=== PATIENT | male | born 1955 ===

== ENCOUNTER 2021-06-09 06:53 | Outpatient (REF) | payer OTHER, SELFPAY ==
--- NOTE | ~2021-06-09 | XR_ITS ---
EXAMINATION: X-RAY SACRUM, 3 VIEWS X-RAY LUMBAR SPINE, 5 VIEWS CLINICAL INFORMATION: Contusion of lower back and pelvis, initial encounter COMPARISON: CT abdomen and pelvis 12/07/2005, lumbar spine radiographs 05/30/2015 TECHNIQUE: AP and lateral radiographs of the sacrum AP, lateral, bilateral oblique, L5-S1 spot views of the lumbar spine FINDINGS: There is an anterior wedging compression deformity of the L1 vertebral body with at least 50% height loss anteriorly. Vertebral body heights are otherwise maintained and there are mild endplate degenerative changes throughout. Posterior elements are normal. Mild loss of disc space at L5-S1, otherwise intervertebral disc spaces are maintained. Mild facet arthropathy L4-L5 and L5-S1. Soft tissues are unremarkable. The bones of the sacrum are intact. 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 There is mild degenerative changes of the sacroiliac joints. XR/XR lumbar spine 4V min IMPRESSION: Anterior wedging/compression fracture of the L1 vertebral body with at least 50% anterior height loss. Findings communicated with Rozina Tsang LPN by Moise Aparicio M.D. at approximately 1053 hours by telephone. Per our discussion the patient had a fall approximately 2 months ago and has had pain since that time. In light of this clinical history, this is most likely a subacute fracture. No acute abnormality of the sacrum or coccyx. Mild degenerative changes of the sacroiliac joints.
--- NOTE | ~2021-06-09 | XR_ITS ---
EXAMINATION: X-RAY SACRUM, 3 VIEWS X-RAY LUMBAR SPINE, 5 VIEWS CLINICAL INFORMATION: Contusion of lower back and pelvis, initial encounter COMPARISON: CT abdomen and pelvis 12/07/2005, lumbar spine radiographs 05/30/2015 TECHNIQUE: AP and lateral radiographs of the sacrum AP, lateral, bilateral oblique, L5-S1 spot views of the lumbar spine FINDINGS: There is an anterior wedging compression deformity of the L1 vertebral body with at least 50% height loss anteriorly. Vertebral body heights are otherwise maintained and there are mild endplate degenerative changes throughout. Posterior elements are normal. Mild loss of disc space at L5-S1, otherwise intervertebral disc spaces are maintained. Mild facet arthropathy L4-L5 and L5-S1. Soft tissues are unremarkable. The bones of the sacrum are intact. 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 There is mild degenerative changes of the sacroiliac joints. XR/XR sacrum coccyx min 2V IMPRESSION: Anterior wedging/compression fracture of the L1 vertebral body with at least 50% anterior height loss. Findings communicated with Rozina Tsang LPN by Moise Aparicio M.D. at approximately 1053 hours by telephone. Per our discussion the patient had a fall approximately 2 months ago and has had pain since that time. In light of this clinical history, this is most likely a subacute fracture. No acute abnormality of the sacrum or coccyx. Mild degenerative changes of the sacroiliac joints.
--- NOTE | ~2021-06-09 | XR_ITS ---
EXAMINATION: XR HIP, RIGHT CLINICAL INFORMATION: Pain in right hip COMPARISON: None TECHNIQUE: Two views of the right hip. FINDINGS: Bones and soft tissues are normal. No fracture. Alignment is anatomic. There is minimal degenerative change along the superior lateral margin of the acetabulum, otherwise the hip joint space is maintained. XR/XR hip RT min 2V IMPRESSION: Equivocal minimal degenerative change along the superior lateral margin of the acetabulum, otherwise normal right hip.
== END 2021-06-09 06:54 | disposition home or self-care (01) ==
LOC: HO.XRAY 06:53
PROVIDERS: PCP Internal Medicine; Visit Provider Nurse Practitioner Family
DX: S30.0XXA Contusion of lower back and pelvis, initial encounter (principal); M25.551 Pain in right hip
CPT/HCPCS: 72110; 72220; 73502

== ENCOUNTER 2021-06-26 08:43 | Outpatient (REF) | payer OTHER, SELFPAY ==
--- NOTE | ~2021-06-26 | MM_ITS ---
EXAMINATION: BONE DENSITOMETRY CLINICAL INDICATION: Wedge compression fracture of 1st lumbar vertebra. COMPARISON: This is the patient's baseline examination. TECHNIQUE: Using a Lomography DXA System (software version: 13.1) manufactured by [employer], dual-energy x-ray absorptiometry was performed of the lumbar spine and left hip. The images are of good technical quality. Summary results are attached. FINDINGS: AP SPINE L1-L4: BMD 1.142 g/cm2, Z-score -0.3, T-score -0.7, normal. LEFT FEMUR, NECK: BMD 0.932 g/cm2, Z-score 0.0, T-score -1.1, osteopenia. LEFT FEMUR, TOTAL: BMD 1.090 g/cm2, Z-score 0.4, T-score -0.1, normal. IDENTIFIED RISK FACTORS: History of fracture (adult). HISTORY OF FRACTURE: Spine. MEDICATIONS: None listed. MM/XR DEXA axial skeleton IMPRESSION: 1. DIAGNOSIS: Osteopenia based on the lowest T-score value of -1.1 in the femoral neck applying World Health Organization criteria. 2. 10-YEAR FRACTURE RISK PREDICTION, FRAX: Major osteoporotic fracture (clinical spine, forearm, hip or shoulder) 9.2%. Hip fracture 1.1%. 3. Treatment Recommendations: NOF guidelines recommend consideration for treatment in postmenopausal women and men age 50 and older presenting with the following: -A hip or vertebral (clinical or morphometric) fracture. -T-score less than or equal to -2.5 at the femoral neck or spine after appropriate evaluation to exclude secondary causes. -Low bone mass at the hip or spine and a 10-year fracture probability by FRAX of greater than or equal to 3% for hip fracture or greater than or equal to 20% for major osteoporotic fracture based on the [place] adapted WHO algorithm. 4. Other Recommendations: All treatment decisions require clinical judgment and consideration of individual patient factors, including patient preferences, comorbidities, previous drug use, risk factors not captured in the FRAX model (e.g. frailty, falls, vitamin D deficiency, increased bone turnover, interval significant decline in bone density) and possible under or overestimation of fracture risk by FRAX. Additional medical evaluation for secondary cause of low bone mineral density may be appropriate. FUTURE SCAN RECOMMENDATION: People with diagnosed cases of osteoporosis or at high risk for fracture should have regular bone mineral density tests. For patients eligible for Medicare, routine testing is allowed once every 2 years. The testing frequency can be increased to one year for patients who have rapidly progressing disease, those who are receiving or discontinuing medical therapy to restore bone mass, or have additional risk factors.
== END 2021-06-26 08:44 | disposition home or self-care (01) ==
LOC: HO.MAMMO 08:43
PROVIDERS: PCP Internal Medicine; Visit Provider Nurse Practitioner Family
DX: Z13.820 Encounter for screening for osteoporosis (principal); S32.010A Wedge compression fracture of first lumbar vertebra, initial encounter for closed fracture; X58.XXXA Exposure to other specified factors, initial encounter; Y93.9 Activity, unspecified; Y92.9 Unspecified place or not applicable; Y99.9 Unspecified external cause status
CPT/HCPCS: 77080

== ENCOUNTER 2021-08-24 10:43 | Outpatient (RCR) | payer OTHER, SELFPAY ==
--- NOTE | 2021-08-25 16:05 | MHC.PT.EP ---
[facility] [place] [facility] [place] [facility] [place] [facility] [address] Elida Jensen [address] [phone] F: [phone] F: [phone] F: [phone] F: [phone] Physical Therapy Plan of Care Date of Evaluation: Date of Surgery: N/A Diagnosis: Low back pain, unspecified Assessment: Pt is a pleasant 65yo M who presents to PT with low back pain s/p falling off of a ladder. Xray revealed anterior wedging/compression fracture of the L1 vertebral body with at least 50% anterior height loss. Pt presents to PT with current impairments in pain, decreased lumbar ROM, decreased core stability, decreased hip/glute strength and muscular restrictions. He is limited functionally by bending, leaning toward R side, and overall functional mobility. He is a good candidate for skilled PT in order to address current impairments to facilitate return to PLOF. He will be seen 2x/week for 4 weeks and will be reassessed at that time. Frequency and Duration: The patient will be seen 2x/week for 4 weeks Short Term Goals: Pt will be I with HEP to promote self management of symptoms Pt will demonstrate improvements in posture and body mechanics throughout the day Detention Goals: Pt will tolerate standing and walking > 60 min with minimal to no pain Pt will demonstrate improvements in functional mobility as evidenced by statistically significant improvement in Modified Oswestry Low Back Pain Disability Index Questionnaire Treatment Plan: Modalities to reduce pain, spasms and effusion. Manual therapy to restore motion and function. Therapeutic exercise to improve strength and flexibility. Neuromuscular re-education for posture and balance. Therapeutic activities to return to functional activities of daily living. Electronically signed by: Karin Nieves, PT, DPT Please sign and return to therapist. Thank you for your referral.
--- NOTE | 2021-09-30 12:40 | MHC.PT.DC ---
[facility] [place] Office [place] [facility] [place] Office [address] Elida Jensen [address] [phone] F: [phone] F: [phone] F: [phone] F: [phone] Physical Therapy Discharge Report Diagnosis: Low back pain, unspecified Date of Surgery: N/A Date of Evaluation: 08/24/21 Date of Discharge: 09/30/21 Treatments to Date: 1 Cancellations to Date: 4 No Shows to Date: 0 Discharge Status: Patient Elected to Stop Discharge Summary: Pt attended initial PT evaluation on 08/24/21. Pt did not attend any treatment sessions and called to cancel all PT appointments as he wanted to wait to have an MRI prior to attending PT. Pt is being D/C from skilled PT as he has not attended in > 30 days. Pt current level of function unknown at this time. Electronically signed by: Karin Nieves, PT, DPT Please sign and return to therapist. Thank you for your referral.
== END 2021-09-30 12:40 | disposition home or self-care (01) ==
LOC: HO.PT 10:43
PROVIDERS: PCP Internal Medicine; Visit Provider Nurse Practitioner Family
DX: S32.010A Wedge compression fracture of first lumbar vertebra, initial encounter for closed fracture (principal); M25.551 Pain in right hip; M54.50 Low back pain, unspecified
CPT/HCPCS: 97110; 97162

== ENCOUNTER 2021-09-14 08:06 | Outpatient (REF) | payer OTHER, SELFPAY ==
--- NOTE | ~2021-09-14 | MR_ITS ---
EXAMINATION: MR LUMBAR SPINE WITHOUT AND WITH CONTRAST CLINICAL INFORMATION: Lumbar compression fracture. Back pain. COMPARISON: None TECHNIQUE: MRI of the lumbar spine was obtained using routine sequences without and with intravenous contrast. A total of 8.5 mL Gadavist was intravenously administered. FINDINGS: There is an acute edematous compression fracture at L1 and up to 50% height loss. There is mild retropulsion of the posterior cortex of L1 causing flattening of the ventral thecal sac but no compression of the distal cord/conus medullaris which terminates normally at the L1-L2 disc level. The remainder of the lumbar vertebral bodies demonstrate normal heights and alignment. There is mild focal kyphosis at the T12-L1 level partly related to the fracture. No abnormal cauda equina nerve root enhancement is seen. The extraspinal soft tissues are within normal limits. SPINAL LEVELS: L1-L2: No posterior disc abnormality. No spinal canal or neural foraminal stenosis. L2-L3: Minimal disc bulging. No spinal canal or neural foraminal stenosis. L3-L4: Mild disc bulging with mild facet arthropathy. No spinal canal or neural foraminal stenosis. L4-L5: Disc bulging with posterior annular fissuring and mild facet arthropathy. Mild bilateral neural foraminal stenosis. L5-S1: Mild disc bulging with facet arthropathy. No spinal canal or neural foraminal stenosis. MR/MR lumbar spine wo/w con IMPRESSION: Acute edematous osteoporotic type compression fracture at L1 with 50% height loss and mild retropulsion. No significant narrowing of the spinal canal or compression of the distal cord/conus medullaris. Minimal spondylosis without nerve root compression or narrowing of the spinal canal.
== END 2021-09-14 08:07 | disposition home or self-care (01) ==
LOC: HO.MRI 08:06
PROVIDERS: Visit Provider Physician Assistant
DX: S32.000A Wedge compression fracture of unspecified lumbar vertebra, initial encounter for closed fracture (principal)
CPT/HCPCS: 72158; A9585

== ENCOUNTER 2021-12-30 09:25 | Day surgery (SDC) | payer OTHER, SELFPAY ==
[2021-11-06 09:48] VITALS: BMI 25.1
--- NOTE | 2021-12-29 13:28 | P.CONAN_ITS ---
Documented by User: Ana Maria Herrera NP 12/29/21 13:42 HPI - Anesthesia Eval Consult details Narrative: 66yo M for Colonoscopy hx of asymmetric septal hypertrophy. Per 09/2021 PCP note: Echocardiogram done initially in 2015 to further evaluate some EKG changes at the time revealed (+) septal hypertrophy with grade I LV diastolic dysfunction Was referred to and evaluated by cardiology back then - as patient was completely asymptomatic and has no family Hx of sudden cardiac , no intervention is indicated at the time except for repeat echocardiogram in 2 years for follow up Repeat echo in 2019 revealed normal LV systolic function with mild LV hypertrophy with grade 1 LV diastolic dysfunction, mild left atrial enlargement, mild AR and normal LV systolic pressure with no pericardial effusion Patient remains asymptomatic and no intervention is again indicated at present Consider repeating echocardiogram again in 4 to 5 years for follow up unless patient starts becoming symptomatic PMF Active Problems Active Problems: All Active Problems (Updated 11/06/21 @ 09:18 by Darleen Rosales RN) Hyperlipidemia (Acute) Annual physical exam (Acute) Elevated blood pressure reading (Acute) Contusion of coccyx (Acute) Dyspnea (Acute) Right hip pain (Acute) Low back pain (Acute) Compression fracture of L1 vertebra (Acute) Wedge compression fracture of L1 vertebra (Acute) Asymmetric septal hypertrophy (Acute) Multiple environmental allergies (Acute) Overweight (BMI 25.0-29.9) (Acute) GERD without esophagitis (Acute) Asthma (Acute) Pure hypercholesterolemia (Acute) Past Medical History Medical History Asthma Asymmetric septal hypertrophy Back pain GERD without esophagitis Multiple environmental allergies Overweight (BMI 25.0-29.9) Pure hypercholesterolemia Seasonal allergies Wedge compression fracture of L1 vertebra Family History Family History Mother No problems noted. Father No problems noted. Surgical History Surgical History History of tracheostomy Hx of colonoscopy No pertinent past surgical history Social History Social History Housing: House Are you a primary child care sitter to a significant other at home: No Do you presently have visiting nurse or other home services: No Alcohol intake: current Alcohol intake frequency: a few times a week Patient Tobacco Use Status: Never used Tobacco e-Cigarette/Vaping Use: Never Used Second Hand Smoke Exposure: Yes Use of substances other than those prescribed or required for medical reasons: Yes Substance Use Type Other:: occas Substance Use Frequency: Occasionally Have you been hit, kicked, punched, or otherwise hurt by someone within the past year? 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 Cognitive needs: No Hearing needs: No Vision needs: Yes Meds Allergies Allergy/AdvReac Type Severity Reaction Status Date / Time cefdinir Allergy Unknown diarrhea- Verified 11/06/21 09:14 c-diff, diarrhea hydrocodone [Vicodin] Allergy Unknown stomach Verified 11/06/21 09:14 upset SEASONAL ALLERGIES Allergy Mild ITCHY Uncoded 11/06/21 09:14 EYES; SNEEZING Exam Exam Date and Time: December 29, 2021 1328 Height,Weight and Vital Signs: Height 5 ft 11 in Weight 81.647 kg Narrative Narrative: Per PCP 09/2021 Echocardiogram done initially in 2015 to further evaluate some EKG changes at the time revealed (+) septal hypertrophy with grade I LV diastolic dysfunction Was referred to and evaluated by cardiology back then - as patient was completely asymptomatic and has no family Hx of sudden cardiac , no intervention is indicated at the time except for repeat echocardiogram in 2 years for follow up Repeat echo in 2018 revealed normal LV systolic function with mild LV hype rtrophy with grade 1 LV diastolic dysfunction, mild left atrial enlargement, mild AR and normal LV systolic pressure with no pericardial effusion Patient remains asymptomatic and no intervention is again indicated at present Consider repeating echocardiogram again in 4 to 5 years for follow up unless patient starts becoming symptomatic Documented by User: Khadar Kaur MD 12/30/21 10:17 [facility] Past Medical History Medical History Asthma Asymmetric septal hypertrophy Back pain GERD without esophagitis Multiple environmental allergies Overweight (BMI 25.0-29.9) Pure hypercholesterolemia Seasonal allergies Wedge compression fracture of L1 vertebra Family History Family History Mother No problems noted. Father No problems noted. Family history of problems with anesthesia: No Surgical History Surgical History History of tracheostomy Hx of colonoscopy No pertinent past surgical history History of Problems with Anesthesia: No Social History Social History Housing: House Are you a primary child care sitter to a significant other at home: No Do you presently have visiting nurse or other home services: No Alcohol intake: current Alcohol intake frequency: a few times a week Patient Tobacco Use Status: Never used Tobacco e-Cigarette/Vaping Use: Never Used Second Hand Smoke Exposure: Yes Use of substances other than those prescribed or required for medical reasons: Yes Substance Use Type Other:: occas Substance Use Frequency: Occasionally Have you been hit, kicked, punched, or otherwise hurt by someone within the past year? 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 Cognitive needs: No Hearing needs: No Vision needs: Yes Meds Allergies Allergy/AdvReac Type Severity Reaction Status Date / Time cefdinir Allergy Unknown diarrhea- Verified 11/06/21 09:14 c-diff, diarrhea hydrocodone [Vicodin] Allergy Unknown stomach Verified 11/06/21 09:14 upset SEASONAL ALLERGIES Allergy Mild ITCHY Uncoded 11/06/21 09:14 EYES; SNEEZING Exam Airway Mallampati Class: II TM Dist: >3cm Neck ROM: Full Loose/Missing/Broken Teeth: No Heart: rrr+[id number] Lungs: cta b/l Assessment and Plan Assessment Anesthesia Assessment: Anesthesia Plan Discussed and Chart Reviewed Final Anesthetic Review Family History of Problems with Anesthesia: No History of Problems with Anesthesia: No NPO: Yes ASA Class: III Final Preanesthetic Review: No Changes in Pt Med Stat, Meds/Allgs Chart Reviewed, Consent Obtained/Reviewed and Anes Risks/Benef Reviewed Patient Risk: Intermediate Procedure Risk: Intermediate Assessment/Block/Sedation in SS: Assess/Block/Sedation-SS Anesthetic Plan Anesthetic Plan: MAC: and Agree w/ Assess. and Plan Disposition: Standard PACU
[2021-12-30 09:40] VITALS: BMI 23.7; BMI 24.3
[2021-12-30 09:45] VITALS: BP 136/101; PULSE 93; RESP 18; TEMP 36.1; O2SAT 96
[2021-12-30] MEDS: Lactated Ringers 1,000 ML 100 ML IVCONT (10:20)
[2021-12-30 11:32] VITALS: BP 143/86; PULSE 101; RESP 16; TEMP 36.5; O2SAT 97
--- NOTE | 2021-12-30 11:33 | PM.OP ---
Brief Operative Note Date of Service: 12/30/21 Pre-op diagnosis: Screening Post-op diagnosis: other (Polyp) Procedure: Colonoscopy to the cecum with hot snare polypectomy Surgeon: Juan Manuel Merino Anesthesia: MAC Was an Fuel Cell Battery Technician used for this Procedure?: No Estimated blood loss (mL): 0 Pathology: other (A. Cecal polyp) Condition: stable Disposition: PACU
[2021-12-30 11:47] VITALS: BP 133/78; PULSE 93; RESP 18; TEMP 36.1; O2SAT 98
--- NOTE | 2021-12-30 12:26 | OP_ITS ---
SURGEON: Juan Maunel Merino MD INDICATIONS: The patient presents for followup of colorectal cancer screening and personal history of tubular adenoma of the colon. Full consent has been obtained from him for this, including risks of bleeding and perforation. PREOPERATIVE DIAGNOSIS: Colorectal cancer screening and personal history of tubular adenoma of the colon. POSTOPERATIVE DIAGNOSIS: PROCEDURE PERFORMED: Colonoscopy to the cecum with hot snare polypectomy. ESTIMATED BLOOD LOSS: COMPLICATIONS: ANESTHESIA: Monitored anesthesia care. ASSISTANTS: SPECIMENS: POSTOPERATIVE DIAGNOSES: Colorectal cancer screening and personal history of tubular adenoma of the colon, colon polyp, diverticulosis, internal hemorrhoids. DESCRIPTION OF PROCEDURE: The patient was placed in the left lateral decubitus position the digital rectal exam revealed no abnormalities. The Olympus video pediatric colonoscope was entered into the rectum and advanced to the cecum. Once in the cecum, I did identify a normal-appearing cecal pouch other than an approximately 10 mm polyp, which was removed by hot snare polypectomy and recovered by suction. The remainder of the cecum, including the appendiceal orifice, appeared normal. The ileocecal valve appeared normal. There was transillumination of light deep in the right lower quadrant. The scope was then slowly withdrawn assessing all mucosal surfaces carefully. Preparation was excellent. I did not visualize any other polyps, colitis, nor angiodysplasia. There was a mild amount of sigmoid diverticulosis. In the rectum, scope was retroflexed visualizing internal hemorrhoids, but no other pathology. The rectal mucosa appeared normal. The scope was straightened and withdrawn from the patient. He tolerated the procedure well and was returned to the recovery area in stable condition. IMPRESSION: 1. Colon polyp. 2. Diverticulosis. 3. Internal hemorrhoids. PLAN: The results of the pathology will be checked. I would recommend a repeat colonoscopy in 5 years for further surveillance. He was advised not to use any aspirin or NSAIDs for 1 week. MD SARINA Valdovinos/MASHA / [id number]
== END 2021-12-30 12:15 | disposition home or self-care (01) ==
PROVIDERS: PCP Internal Medicine; Visit Provider Internal Medicine
PROC: 0DJD8ZZ Inspection of Lower Intestinal Tract, Via Natural or Artificial Opening Endoscopic (ICD-10-PCS; CPT 45378; principal; 2021-12-30 10:30)
DX: Z12.11 Encounter for screening for malignant neoplasm of colon (principal); Z86.010 Personal history of colon polyps; D12.0 Benign neoplasm of cecum; K57.30 Diverticulosis of large intestine without perforation or abscess without bleeding; K64.8 Other hemorrhoids; K21.9 Gastro-esophageal reflux disease without esophagitis; E78.5 Hyperlipidemia, unspecified; J45.909 Unspecified asthma, uncomplicated; Z79.1 Long term (current) use of non-steroidal anti-inflammatories (NSAID); Z79.899 Other long term (current) drug therapy; Z98.890 Other specified postprocedural states
CPT/HCPCS: 45385; 88305

== ENCOUNTER 2022-04-23 09:54 | Outpatient (REF) | payer OTHER, MEDICARE, SELFPAY ==
[2022-04-23 11:16] LABS: MANUAL DIFF FLAG NO
[2022-04-23 11:30] LABS: Appearance Urine Clear; Color Urine Yellow; Glucose Urine UA Negative (Negative); Leukocyte Esterase Urine Negative (Negative); Nitrite Urine Negative (Negative); PH 6.5 (5.0-9.0); Specific Gravity - Urine 1.015 (1.005-1.025); Urine Blood Negative (Negative); Urine Ketones Trace mg/dL (Negative); Urine Protein Negative (Neg-Trace)
[2022-04-23 11:56] LABS: Basophils Absolute Auto 0.1 X10*3/uL (0.0-0.2); Basophils Percent Auto 1.8 % (0-2); Eosinophils Absolute Auto 0.3 X10*3/uL (0.0-0.4); Eosinophils Percent Auto 4.6 % (0-4); Hematocrit 49.6 % (42.0-52.0); Hemoglobin 16.8 g/dl (14.0-18.0); Imm Gran Abs Auto 0.03 X10*3/uL (0.00-0.03); Imm Gran Pct Auto 0.5 % (0.0-0.4); Lymphocytes Absolute Auto 1.2 X10*3/uL (1.2-4.9); Lymphocytes Percent Auto 19.2 % (20-40); Mean Corpuscular HGB Conc 33.9 g/dl (31.0-36.0); Mean Corpuscular Volume 94.5 fL (80.0-98.0); Mean Platelet Volume 9.6 fL (9.4-12.4); Monocytes Absolute Auto 0.7 X10*3/uL (0.1-1.2); Monocytes Percent Auto 11.9 % (2-11); Neutrophils Absolute Auto 3.8 x10*3/uL (2.0-8.3); Platelet Count 306 X10*3/uL (160-400); Red Blood Count 5.25 X10*6/uL (4.60-5.80); Red Cell Distribution Width 11.8 % (11.0-16.0); White Blood Count 6.1 X10*3/uL (4.8-10.8)
[2022-04-23 12:32] LABS: Alanine Aminotransferase 20 U/L (0-40); Albumin Level 4.5 g/dL (3.5-5.0); Alkaline Phosphatase 84 U/L (39-117); Anion Gap 14 (12-20); Aspartate Amino Transferase 26 U/L (5-37); Bilirubin Total 1.1 mg/dL (0.0-1.0); Blood Urea Nitrogen 9 mg/dL (9-16); Calcium 9.7 mg/dL (8.4-10.2); Carbon Dioxide 27 mmol/L (22-29); Chloride 101 mmol/L (96-108); Cholesterol 198 mg/dL; Estimated Glomerular Filt Rate > 60; Glucose Fasting 97 mg/dL (60-99); HDL Cholesterol 69 mg/dL; LDL Cholesterol Calculated 113 mg/dl; Potassium 4.7 mmol/L (3.3-5.1); Sodium 137 mmol/L (135-145); Total Protein 7.4 g/dL (6.5-8.0); Triglycerides 84 mg/dL
[2022-04-23 12:49] LABS: Prostate Specific Antigen Scr 1.75 ng/mL (<0.05-4.0); Vitamin D 25-OH Total 20.5 ng/mL (>30)
== END 2022-04-23 09:55 | disposition home or self-care (01) ==
LOC: HO.10HDL 09:54
PROVIDERS: Visit Provider Internal Medicine
DX: Z00.00 Encounter for general adult medical examination without abnormal findings (principal); Z12.5 Encounter for screening for malignant neoplasm of prostate; E55.9 Vitamin D deficiency, unspecified; E78.00 Pure hypercholesterolemia, unspecified
CPT/HCPCS: 36415; 80053; 80061; 81003; 82306; 84153; 84443; 85025

== ENCOUNTER 2022-05-09 20:16 | Emergency (ER) | payer MEDICARE, OTHER, SELFPAY ==
[2022-05-09] MEDS: Famotidine/PF 20 MG/2 ML VIAL IVPUSH (20:36)
[2022-05-09] MEDS: dexAMETHasone sod phosphate 10 MG/ML VIAL IVPUSH (20:36)
[2022-05-09] MEDS: diphenhydrAMINE HCL 50 MG/ML VIAL 25 MG IVPUSH (20:36)
[2022-05-09 20:37] VITALS: BP 163/81; PULSE 104; RESP 16; TEMP 36.7; O2SAT 98; BMI 25.9
--- NOTE | 2022-05-09 21:18 | ED.ALLEREA ---
HPI - Allergic Reaction General Chief complaint: Allergic Reaction Stated complaint: allergic reaction/ used epi pen Time Seen by Provider: 05/09/22 20:18 Source: patient Mode of arrival: ambulatory Limitations: no limitations History of Present Illness HPI narrative: Patient with no known history of any allergic reaction to seafood severe anaphylaxis status post intubation years ago from environmental allergy today patient had seafood salad which she been having almost every day for last few days after eating salad around 17:00 noticed itching of face swollen face and difficulty in breathing. Patient took old EpiPen IM and Benadryl 50 prior to arrival but arrived still feels short of breath with swollen face no nausea no vomiting Related Data Previous Rx's Medication Instructions Recorded albuterol sulfate 90 mcg/actuation 2 puff inhalation Q6H PRN 04/22/22 aerosol inhaler (Ventolin HFA) shortness of breath or wheezing 30 days #8.5 grams fluticasone propionate 110 1 puff PO BID 30 days #12 grams 04/22/22 mcg/actuation HFA aerosol inhaler (Flovent HFA) ibuprofen 800 mg tablet 800 mg PO Q8H PRN pain 30 days #90 04/22/22 tabs simvastatin 20 mg tablet 20 mg PO BEDTIME #90 tabs 04/22/22 amoxicillin 875 mg-potassium 1 tab PO BID 10 days #20 tabs 04/23/22 clavulanate 125 mg tablet famotidine 40 mg tablet 40 mg PO BEDTIME PRN GERD 90 days 04/23/22 #90 tabs kctvarvb-dlxdicsgv-usotyuzui 3.5 4 drp otic (ears) Q8H 7 days #10 mL 04/23/22 mg-10,000 unit/mL-1 % ear drops,susp epinephrine 0.3 mg/0.3 mL 0.3 mg (0.3 mL) IM Q4H PRN 05/09/22 injection, auto-injector (EpiPen anaphylaxis #2 ea 2-[place]) prednisone 20 mg tablet 40 mg PO DAILY #10 tabs 05/09/22 Allergies Allergy/AdvReac Type Severity Reaction Status Date / Time cefdinir Allergy Unknown diarrhea- Verified 04/23/22 08:53 c-diff, diarrhea hydrocodone [Vicodin] Allergy Unknown stomach Verified 04/23/22 08:53 upset SEASONAL ALLERGIES Allergy Mild ITCHY Uncoded 11/06/21 09:14 EYES; SNEEZING Review of Systems Review of Systems: Yes all other systems are reviewed and are negative [facility] Past Medical History Medical History Asthma Asymmetric septal hypertrophy Back pain GERD without esophagitis Multiple environmental allergies Overweight (BMI 25.0-29.9) Pure hypercholesterolemia Seasonal allergies Wedge compression fracture of L1 vertebra Surgical History History of tracheostomy Hx of colonoscopy No pertinent past surgical history Family History Family History Mother No problems noted. Father No problems noted. 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 Cognitive needs: No Hearing needs: No Vision needs: Yes Physical Exam ED Vital Signs: Vital Signs - 24 hr 05/09/22 20:37 Temperature 98.0 F Pulse Rate 104 H Respiratory Rate 16 Blood Pressure 163/81 H Pulse Oximetry 98 Oxygen Delivery Method Room Air BMI result Body Mass Index 25.9 Appearance: Alert. Oriented X3. No acute distress. ENT: Pharynx erythematous uvula normal no tongue swelling slight upper lip swelling, Oral Mucosa moist , erythema with facial swelling including the ear pinna Neck: Normal inspection. Neck supple. CVS: Normal heart rate and rhythm. Pulses normal. Respiratory: No respiratory distress. Equal air entry bilateral, no wheezing/rales/rhonchi bilateral prolonged expiration Abdomen: Soft and nontender. Bowel sounds are present, Skin: Skin warm and dry. Normal skin color. Normal skin turgor. Neuro: Oriented X 3. Medications Administered Discontinued Medications Generic Name Dose Route Start Last Admin Trade Name Freq PRN Reason Stop Dose Admin Dexamethasone Sodium Phosphate 10 mg 05/09/22 20:21 05/09/22 20:36 Dexamethasone Sod Phosphate 10 Mg/Ml Vial IVPUSH 05/09/22 20:22 10 mg ONCE ONE Administration Diphenhydramine HCl 25 mg 05/09/22 20:21 05/09/22 20:36 Diphenhydramine Hcl 50 Mg/Ml Vial IVPUSH 05/09/22 20:22 25 mg ONCE ONE Administration Famotidine 20 mg 05/09/22 20:21 05/09/22 20:36 Famotidine/Pf 20 Mg/2 Ml Vial IVPUSH 05/09/22 20:22 20 mg ONCE ONE Administration Medical Decision Making Medical Decision Making MDM Narrative: Patient responded to IV Benadryl Decadron and Pepcid feeling much better now lungs are clear rash has improved itching is decreased. Patient likely has allergic reaction to some of the seafood ingredients. Patient advised not to eat seafood take prednisone Benadryl and follow with PCP for further testing once get better Discharge Plan Discharge Clinical Impression: Anaphylaxis Patient Disposition: Home, Self-Care Instructions: Food Allergy (ED) Additional Instructions: Avoid seafood Take Benadryl 50 mg every 6 hours as needed Take prednisone daily if rash recurs Follow-up with PCP for further testing Take EpiPen for recurrence of severe rash/ anaphylaxis and come to the ER Prescriptions: New epinephrine [EpiPen 2-[place]] 0.3 mg/0.3 mL auto-injector 0.3 mg IM Q4H PRN (Reason: anaphylaxis) Qty: 2 0RF prednisone 20 mg tablet 40 mg PO DAILY Qty: 10 0RF No Action simvastatin 20 mg tablet 20 mg PO BEDTIME Qty: 90 0RF albuterol sulfate [Ventolin HFA] 90 mcg/actuation HFA aerosol inhaler 2 puff inhalation Q6H PRN (Reason: shortness of breath or wheezing) 30 Days Qty: 8.5 5RF Flovent HFA 110 mcg/actuation HFA aerosol inhaler 1 puff PO BID 30 Days Qty: 12 5RF ibuprofen 800 mg tablet 800 mg PO Q8H PRN (Reason: pain) 30 Days Qty: 90 3RF Rx Instructions: Take with food phxmpkaw-hqihvuhdy-RK 3.5-10,000-1 mg/mL-unit/mL-% drops,suspension 4 drp otic (ears) Q8H 7 Days Qty: 10 0RF amoxicillin-pot clavulanate 875-125 mg tablet 1 tab PO BID 10 Days Qty: 20 0RF famotidine 40 mg tablet 40 mg PO BEDTIME PRN (Reason: GERD) 90 Days Qty: 90 0RF Rx Instructions: gets OTC Interventions: ED Discharge Assessment Last Done: 05/09/22 21:47 Discharge Date/Time: 05/09/22 21:48
== END 2022-05-09 21:48 | disposition home or self-care (01) ==
PROVIDERS: Emergency Provider Internal Medicine; PCP Internal Medicine
DX: T78.03XA Anaphylactic reaction due to other fish, initial encounter (principal); Z79.899 Other long term (current) drug therapy; L29.9 Pruritus, unspecified
CPT/HCPCS: 96372; 96374; 96375; 96376; 99283; 99284; J1100; J1200

== ENCOUNTER 2022-05-26 07:32 | Outpatient (REF) | payer MEDICARE, OTHER, SELFPAY ==
[2022-06-04 11:18] LABS: Rast Allergen SEE COMMENTS
== END 2022-05-26 07:33 | disposition home or self-care (01) ==
LOC: HO.10HDL 07:32
PROVIDERS: Visit Provider Otolaryngology
DX: T78.2XXA Anaphylactic shock, unspecified, initial encounter (principal)
CPT/HCPCS: 36415; 82785; 86003

== ENCOUNTER 2022-06-22 07:00 | Outpatient (RCR) | payer MEDICARE, OTHER, SELFPAY ==
--- NOTE | 2022-05-07 13:57 | MHC.PT.EP ---
[facility] [place] Office [place] [facility] [place] Office [address] Elida Jensen [address] [phone] F: [phone] F: [phone] F: [phone] F: [phone] Physical Therapy Plan of Care Date of Evaluation: Date of Surgery: NA Diagnosis: Low back pain Assessment: Colin is a 66 year old male who is referred to PT for low back pain . He reports of having pain in his low back following a fall and compression fracture at L1 in Mar 2021. He trialed PT last year but was in too much pain and was unable to tolerate it. On PT examination he presented with mild TTP T12, L1, 4/10 pain after prolonged periods of rest, with bending, and lifting, decreased trunk ROM, decreased core and B LE strength, altered posture and gait. He is independent with all ADLS but modifies them and takes frequent rest breaks due to pain. 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 He would benefit from skilled PT to address the aforementioned impairments and improve tolerance to functional activities. Frequency and Duration: The patient will be seen 2/week for 4 weeks. Short Term Goals: 1. Pt will have 50% decrease in pain which will enable him to wake up in the morning without pain in 2 weeks. 2. Pt will be able to move trunk through all planes of motion without pain which will enable him to bend over without pain in 3 weeks [facility] Goals: 1. Pt will demonstrate an increase in muscle strength by 1 grade which will enable him to carry weights without pain in 4 weeks. 2. Pt will be independent with HEP for symptom management and maintenance following d/c in 4 weeks. Treatment Plan: Modalities to reduce pain, spasms and effusion. Manual therapy to restore motion and function. Therapeutic exercise to improve strength and flexibility. Neuromuscular re-education for posture and balance. Therapeutic activities to return to functional activities of daily living. Electronically signed by: Beatriz Denton PT DPT Please sign and return to therapist. Thank you for your referral.
--- NOTE | 2022-07-14 10:04 | MHC.PT.DC ---
[facility] [place] [facility] [address] Elida Jensen [address] [phone] F: [phone] F: [phone] F: [phone] F: [phone] Physical Therapy Discharge Report Diagnosis: Low back pain Date of Surgery: NA Date of Evaluation: 05/07/22 Date of Discharge: 07/14/22 Treatments to Date: 4 Cancellations to Date: 4 No Shows to Date: Discharge Status: Visit Non-compliance Discharge Summary: Colin has not attended PT in last 3 weeks. He has had 4 cancels and has only attended 4 visits in the last 2 months. He is therefore being d/c from PT for non compliance Electronically signed by: Beatriz Denton, PT DPT Please sign and return to therapist. Thank you for your referral.
== END 2022-07-14 10:04 | disposition home or self-care (01) ==
LOC: HO.PT 07:00
PROVIDERS: PCP Internal Medicine; Visit Provider Internal Medicine
DX: M54.50 Low back pain, unspecified (principal)
CPT/HCPCS: 97110; 97140; 97161

== ENCOUNTER 2022-10-25 09:01 | Outpatient (AMB) | payer OTHER, SELFPAY ==
[2022-10-25 09:03] VITALS: BP 136/80; PULSE 58; O2SAT 97; BMI 27.6
--- NOTE | 2022-10-25 09:03 | A.OFFPC_ITS ---
Vital Signs 10/25/22 09:03 Height 5 ft 9 in Weight 187 lb BMI 27.6 BP 136/80 Blood Pressure Location Lt brachial Position Sitting Pulse 58 Pulse Source Pulse Oximeter Temp Source Skin Pulse Oximetry (%) 97 Oxygen Delivery Method Room Air Intake Visit Reasons: 6mth f/u Intake Note: Patient is here to follow up on 6 months Roof Slater Required: No Allergies cefdinir Allergy (Unknown, Verified 10/25/22 09:15) diarrhea- c-diff, diarrhea hydrocodone [Vicodin] Allergy (Unknown, Verified 10/25/22 09:15) stomach upset SEASONAL ALLERGIES Allergy (Mild, Uncoded 10/25/22 09:15) ITCHY EYES; SNEEZING Medication List - Last Reconciled 10/25/22 by Semaj Moeller MD albuterol sulfate 90 mcg/actuation (Ventolin HFA) 2 puffs inhalation Q6H PRN 30 days epinephrine (EpiPen 2-[place]) 0.3 mg (0.3 mL) IM Q4H PRN famotidine 40 mg PO BEDTIME PRN 90 days fluticasone propionate 110 mcg/actuation (Flovent HFA) 1 puff PO BID 30 days ibuprofen 800 mg PO Q8H PRN 30 days simvastatin 20 mg PO BEDTIME Tobacco use date assessed: 10/25/22 Fall risk assessment: No Falls in past year Last assessed Fall Risk: 10/25/22 Dental Screening Dental Screen Date: 10/25/22 Did you have a dental visit in the last 12 months?: Yes Did you have a dental problem in the last 6 months where you did not have access to dental care?: No Was dental information given to patient?: Patient has dentist HPI 6mth f/u HPI Details Patient comes in today for his follow up visit States that he feels okay except for his right knee, which he states has been bothering him a lot (pain) lately Recalls that he had an old football injury to his right knee when he was playing football back in college and thinks that his old injury is starting to flare up lately States that his lower back still bothers him a lot Has not seen Dr. Gold in over a year; recalls that they were discussing the option of a kyphoplasty for his wedge compression fracture Adds that he still has a recurrent nonproductive cough; recalls having a tracheostomy a few years ago and thinks that there may be something in his throat where he had the tracheostomy that is triggering his cough as he would have uncontrolled coughing fits when they occur He denies any sore throat or trouble swallowing He denies any headaches or dizziness Denies any chest pains, no SOB No nausea/vomiting, no abdominal pain No change in bowel habits noted Needs his Albuterol inhaler Rx refilled Would like to go over in detail the results of his labs done a few months ago [facility], [facility] Medical History (Updated 10/25/22 @ 09:58 by Semaj Moeller MD) Vitamin D deficiency Back pain Seasonal allergies Wedge compression fracture of L1 vertebra Asymmetric septal hypertrophy Multiple environmental allergies Overweight (BMI 25.0-29.9) GERD without esophagitis Asthma Pure hypercholesterolemia Surgical History History of tracheostomy Hx of colonoscopy No pertinent past surgical history Family History Mother No problems noted. Father No problems noted. 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 Cognitive needs: No Hearing needs: No Vision needs: Yes Questionnaire PHQ-9 Over the last 2 weeks, how often have you been bothered by any of the following problems? 1. Little interest or pleasure in doing things: not at all 2. Feeling down, depressed, or hopeless: not at all 3. Trouble falling or staying asleep, or sleeping too much: not at all 4. Feeling tired or having little energy: not at all 5. Poor appetite or overeating: several days 6. Feeling bad about yourself - or that you are a failure or have let yourself or your family down: not at all 7. Trouble concentrating on things, such as reading the newspaper or watching television: not at all 8. Moving or speaking so slowly that other people could have noticed. Or the opposite - being so fidgety or restless that you have been moving around a lot more than usual: not at all 9. Thoughts that you would be better off or of hurting yourself in some way: not at all Total score: 1 Depression Screening Interpretation: Negative 73219 - PHQ-9 Billing: Yes Source: Developed by Drs. Juan Manuel Piña, Vikash Campos and colleagues, with an educational johnny from [email or web address]. Thrive Questionnaire Date Thrive assessed: 10/25/22 I am a: Patient What is your living situation today?: I have a steady place to live Within the past 12 months, did the food you bought not last and you didn't have the money to get more?: Never true Within the past 12 months, did you worry whether your food would run out before you got money to buy more?: Never true Currently or been in a relationship where the following occur: no concerns reported AUDIT C Alcohol Use Questionnaire (AUDIT-C) 1. How often do you have a drink containing alcohol?: Never 3. How often do you have six or more drinks on one occasion?: Never Total Score: 0 Score Reviewed/Action Taken: Yes ZONIA-7 AMB Questionnaire ZONIA-7 Date ZONIA - 7 assessed: 04/23/22 Feeling nervous, anxious, or on edge: 1 = Several days Not being able to stop or control worryin = Several days Worrying too much about different things: 0 = Not at all Trouble relaxin = Several days Being so restless that it is hard to sit still: 0 = Not at all Becoming easily annoyed or irritable: 0 = Not at all Feeling afraid as if something awful might happen: 0 = Not at all Total ZONIA-7 score (0-4 normal; 5-9 mild; 10-14 moderate; 15-21 severe): 3 Source: Developed by Drs. Juan Manuel Piña, Vikash Campos and colleagues, with an educational johnny from [email or web address]. Review of Systems Const Denies chills, Denies fatigue, Denies fever(s) and Denies headache(s) ENT Denies dysphagia, Denies dizziness, Denies otalgia, Denies headache(s), Denies neck pain, Denies odynophagia and Denies sore throat Card Denies chest pain, Denies palpitations and Denies dyspnea Resp Reports cough (recurrent, non-productive), Denies dyspnea and Denies wheezing GI Denies abdominal pain, Denies constipation, Denies dysphagia, Denies heartburn, Denies diarrhea, Denies nausea, Denies odynophagia and Denies vomiting Denies dysuria, Denies nocturia and Denies urinary frequency Musc Reports back pain (over the lower back - chronic), Reports arthralgias (right knee - increasing lately) and Denies neck pain Neuro Denies dizziness and Denies headache(s) Endo Denies fatigue and Denies palpitations Aller/Immun Denies wheezing Physical exam (Primary Care) Vital Signs: Last Vital Signs Pulse 58 10/25/22 09:03 BP 136/80 10/25/22 09:03 Pulse Ox 97 10/25/22 09:03 Oxygen Delivery Method Room Air 10/25/22 09:03 BMI result Body Mass Index 27.6 Tobacco/Smoking Status: Tobacco use Status Tobacco use date assessed 10/25/22 10/25/22 09:05 Patient Tobacco Use Status Never used Tobacco 10/25/22 09:05 e-Cigarette/Vaping Use Never Used 10/25/22 09:05 Depression Screening Interpretation: Negative Thrive Assessment: Date of Thrive Assessment Date Thrive assessed 04/23/22 10/25/22 09:05 Currently or been in a relationship where the following occur: no concerns reported Const General: no acute distress and alert HENMT Ears: TM's normal bilaterally and EAC's normal Throat: Yes posterior oropharynx normal and Yes tonsils normal (no TP congestion) Neck Neck: Yes no lymphadenopathy and Yes supple Resp Auscultation: clear to auscultation bilaterally, no rales and no wheezes Cardio Rate: regular rate Rhythm: regular rhythm Heart sounds: no murmurs GI Palpation (GI): Soft to palpation and nontender Auscultation: normal bowel sounds Back/Spine/Pelvis Thoracic/Lumbar Spine: lumbar spinal tenderness Skin Rashes: no rashes Extrem General: Yes no clubbing, cyanosis or edema Right lower extremity: knee Details: tenderness Location: of the medial joint line; no swelling Assessment and Plan Assessment & Plan (1) Pure hypercholesterolemia: Code(s): E78.00 - Pure hypercholesterolemia, unspecified Plan: He was not able to get his follow up labs done prior to his visit today Reinforced low cholesterol diet Continue Simvastatin 20 mg QD Will recheck his fasting lipids and labs in 6 months for follow up (2) Elevated blood pressure reading: Code(s): R03.0 - Elevated blood-pressure reading, without diagnosis of hypertension Plan: Reinforced low sodium diet - recommend systolic BP of 120 mm or less Patient advised to continue monitoring his blood pressure regularly (3) Wedge compression fracture of L1 vertebra: Code(s): S32.010A - Wedge compression fracture of first lumbar vertebra, initial encounter for closed fracture Qualifiers: Encounter type: sequela Fracture type: closed Qualified Code(s): S32.010S - Wedge compression fracture of first lumbar vertebra, sequela Plan: Lumbar spine MRI done on 09/14/2021 revealed (+) acute edematous osteoporotic type compression fracture at L1, with no significant spinal canal narrowing or cord compression noted Reinforced activity and weight-lifting restrictions Recalls that he was seen by neurosurgery last year and was recommended kyphoplasty, which he declined at the time Was reported also advised back then that physical therapy and core muscle strengthening exercises would best help him for the time being As he has not been seen by neurosurgery in over a year now and his lower back is reportedly bothering him again more than usual, have advised him to check back with Dr. Gold's office to schedule a follow up appt MARCOS (4) Asthma: Code(s): J45.909 - Unspecified asthma, uncomplicated Qualifiers: Asthma severity: moderate Asthma persistence: persistent Asthma complication type: uncomplicated Qualified Code(s): J45.40 - Moderate persistent asthma, uncomplicated Plan: Stable - continue Flovent HFA 110 mcg 1 inhalation BID and Albuterol HFA 2 inhalations every 6 hours as needed (Rx refilled) (5) GERD without esophagitis: Code(s): K21.9 - Gastro-esophageal reflux disease without esophagitis Plan: Dietary restrictions reinforced Takes OTC Famotidine 20 mg Q HS PRN with adequate control of his symptoms - prefers to continue doing this for now (6) Asymmetric septal hypertrophy: Code(s): I42.2 - Other hypertrophic cardiomyopathy Plan: Echocardiogram done initially in 2015 to further evaluate some EKG changes at the time revealed (+) septal hypertrophy with grade I LV diastolic dysfunction He was referred to and evaluated by cardiology back then - as patient was completely asymptomatic and has no family Hx of sudden cardiac , no intervention is indicated at the time except for repeat echocardiogram in 2 years for follow up Repeat echo in 2019 revealed normal LV systolic function with mild LV h ypertrophy with grade 1 LV diastolic dysfunction, mild left atrial enlargement, mild AR and normal LV systolic pressure with no pericardial effusion Patient remains asymptomatic and no intervention is again indicated at present Consider repeating echocardiogram again in 4 to 5 years for follow up unless patient starts experiencing cardiac-related symptoms (7) Multiple environmental allergies: Code(s): Z91.09 - Other allergy status, other than to drugs and biological substances Plan: Takes OTC Diphenhydramine 25 mg 2 tablets every 4 to 6 hours as needed and Fluticasone 50 mcg nasal spray QD PRN Patient also carries an EpiPen auto-injector to use when needed He reportedly had some anaphylactic reaction in late April 2022, which he assumed was from something he ate back then (8) Right knee pain: Code(s): M25.561 - Pain in right knee Qualifiers: Chronicity: unspecified Qualified Code(s): M25.561 - Pain in right knee Plan: Patient recalls suffering a right knee injury while he was playing football in college and thinks that his current right knee pain may be related to his old injury Will send him for right knee x-rays for further evaluation (9) Recurrent nonproductive cough: Code(s): R05.8 - Other specified cough Plan: States that his coughing spells seem to start in his throat and thinks that it may be related to his tracheostomy a few years ago - is concerned that there may be something in his throat that is triggering his cough He denies any trouble swallowing and denies any sore throat or throat pain Is advised to check back with ENT (Dr. Turk) about this and see if ENT can perform at least an office laryngoscopy to look into his throat Patient is instructed to call if he needs a new referral to ENT (10) Vitamin D deficiency: Code(s): E55.9 - Vitamin D deficiency, unspecified Plan: Advised that his Vitamin D level was very low on his labs done back in April 2022 Will start him on OTC Vitamin D3 2000 units QD Plan To return in 6 months for his next annual physical examination Orders: Orders Complete Blood Count Auto Diff 6 Months I10 - Essential (primary) hypertension, Z00.00 - Encounter for general adult medical examination without abnormal findings Comprehensive [place]. Panel Fast 6 Months E78.00 - Pure hypercholesterolemia, unspecified, Z00.00 - Encounter for general adult medical examination without abnormal findings Lipid Panel 6 Months E78.00 - Pure hypercholesterolemia, unspecified, Z00.00 - Encounter for general adult medical examination without abnormal findings UA CC w/rflx Micro + Cult 6 Months R30.0 - Dysuria, Z00.00 - Encounter for general adult medical examination without abnormal findings Vitamin D 25-OH Total 6 Months E55.9 - Vitamin D deficiency, unspecified, Z00.00 - Encounter for general adult medical examination without abnormal findings XR knee RT 4V Today M25.561 - Pain in right knee TSH reflex Free T4 6 Months E78.00 - Pure hypercholesterolemia, unspecified, Z00.00 - Encounter for general adult medical examination without abnormal findings Prostate Specific Antigen 6 Months N40.0 - Benign prostatic hyperplasia without lower urinary tract symptoms, Z00.00 - Encounter for general adult medical examination without abnormal findings Medications: New cholecalciferol (vitamin D3) 50 mcg PO DAILY 90 days 90 caps 3RF E55.9 - Vitamin D deficiency, unspecified Refilled albuterol sulfate 90 mcg/actuation (Ventolin HFA) 2 puffs inhalation Q6H 30 days PRN 8.5 grams 5RF shortness of breath or wheezing Coding Level of Care Code Est Pt Level 4 (32802) Diagnoses Pure hypercholesterolemia E78.00 Elevated blood pressure reading R03.0 Closed wedge compression fracture of L1 vertebra, sequela S32.010S Encounter type: sequela Fracture type: closed Moderate persistent asthma without complication J45.40 Asthma severity: moderate Asthma persistence: persistent Asthma complication type: uncomplicated GERD without esophagitis K21.9 Asymmetric septal hypertrophy I42.2 Multiple environmental allergies Z91.09 Right knee pain, unspecified chronicity M25.561 Chronicity: unspecified Recurrent nonproductive cough R05.8 Vitamin D deficiency E55.9
== END 2022-10-25 09:33 | disposition home or self-care (01) ==
PROVIDERS: PCP Internal Medicine; Visit Provider Internal Medicine
DX: J45.40 Moderate persistent asthma, uncomplicated (principal); K21.9 Gastro-esophageal reflux disease without esophagitis; I42.2 Other hypertrophic cardiomyopathy; Z91.09 Other allergy status, other than to drugs and biological substances; E55.9 Vitamin D deficiency, unspecified; E78.00 Pure hypercholesterolemia, unspecified; R03.0 Elevated blood-pressure reading, without diagnosis of hypertension; S32.010S Wedge compression fracture of first lumbar vertebra, sequela; M25.561 Pain in right knee; R05.8 Other specified cough
CPT/HCPCS: 99214

== ENCOUNTER 2023-04-25 10:00 | Outpatient (REF) | payer OTHER, SELFPAY ==
[2023-04-25 10:20] LABS: MANUAL DIFF FLAG NO
[2023-04-25 10:50] LABS: Basophils Absolute Auto 0.1 X10*3/uL (0.0-0.2); Basophils Percent Auto 1.1 % (0-2); Eosinophils Absolute Auto 0.5 X10*3/uL (0.0-0.4); Eosinophils Percent Auto 6.4 % (0-4); Hematocrit 48.7 % (42.0-52.0); Hemoglobin 16.8 g/dl (14.0-18.0); Imm Gran Abs Auto 0.03 X10*3/uL (0.00-0.03); Imm Gran Pct Auto 0.4 % (0.0-0.4); Lymphocytes Absolute Auto 1.6 X10*3/uL (1.2-4.9); Lymphocytes Percent Auto 18.9 % (20-40); Mean Corpuscular HGB Conc 34.5 g/dl (31.0-36.0); Mean Corpuscular Hemoglobin 31.5 pg (27.0-33.0); Mean Corpuscular Volume 91.2 fL (80.0-98.0); Mean Platelet Volume 9.4 fL (9.4-12.4); Monocytes Absolute Auto 0.8 X10*3/uL (0.1-1.2); Monocytes Percent Auto 9.8 % (2-11); Neutrophils Absolute Auto 5.4 x10*3/uL (2.0-8.3); Neutrophils Percent Auto 63.4 % (45-73); Platelet Count 296 X10*3/uL (160-400); Red Blood Count 5.34 X10*6/uL (4.60-5.80); Red Cell Distribution Width 11.6 % (11.0-16.0); White Blood Count 8.5 X10*3/uL (4.8-10.8)
[2023-04-25 11:40] LABS: Prostate Specific Antigen 0.96 ng/mL (<0.05-4.0)
[2023-04-25 11:53] LABS: TSH reflex Free T4 2.73 uIU/mL (0.32-4.0); Vitamin D 25-OH Total 26.2 ng/mL (>30)
[2023-04-25 12:21] LABS: Alanine Aminotransferase 16 U/L (0-40); Albumin Level 4.4 g/dL (3.5-5.0); Alkaline Phosphatase 69 U/L (39-117); Anion Gap 14 (12-20); Aspartate Amino Transferase 20 U/L (5-37); Bilirubin Total 1.2 mg/dL (0.0-1.0); Blood Urea Nitrogen 8 mg/dL (9-16); Calcium 10.2 mg/dL (8.4-10.2); Carbon Dioxide 28 mmol/L (22-29); Chloride 101 mmol/L (96-108); Cholesterol 186 mg/dL (<200); Estimated Glomerular Filt Rate > 60; Glucose Fasting 96 mg/dL (60-99); HDL Cholesterol 66 mg/dL (>40); LDL Cholesterol Calculated 98 mg/dL (<100); Potassium 3.9 mmol/L (3.3-5.1); Sodium 139 mmol/L (135-145); Total Protein 7.3 g/dL (6.5-8.0); Triglycerides 111 mg/dL (<150)
[2023-04-25 13:31] LABS: Appearance Urine Clear; Color Urine Yellow; Glucose Urine UA Negative (Negative); Leukocyte Esterase Urine Trace (Negative); Nitrite Urine Negative (Negative); PH 8.5 (5.0-9.0); UMIC TRIGGER UACC YES; Urine Blood Negative (Negative); Urine Ketones Negative (Negative); Urine Protein Negative (Neg-Trace)
[2023-04-25 13:36] LABS: Bacteria Urine None Seen (None Seen); Hyaline Casts Urine 0-2 /LPF (0-2); RBC Urine 0-2 /HPF (0-2); Squamous Epithelial Cell Urine 0-2 /HPF (0-2); WBC Urine 0-5 /HPF (0-5)
== END 2023-04-25 10:01 | disposition home or self-care (01) ==
LOC: HO.10HDL 10:00
PROVIDERS: Visit Provider Internal Medicine
DX: Z00.00 Encounter for general adult medical examination without abnormal findings (principal); Z12.5 Encounter for screening for malignant neoplasm of prostate; I10 Essential (primary) hypertension; E78.00 Pure hypercholesterolemia, unspecified; E55.9 Vitamin D deficiency, unspecified; N40.0 Benign prostatic hyperplasia without lower urinary tract symptoms
CPT/HCPCS: 36415; 80053; 80061; 81001; 82306; 84153; 84443; 85025

== ENCOUNTER 2023-04-29 08:55 | Outpatient (AMB) | payer MEDICARE, OTHER, SELFPAY ==
--- NOTE | 2023-04-29 08:58 | MHC.PC.OV ---
Vital Signs 04/29/23 08:59 Height 5 ft 9 in Weight 190 lb 8 oz BMI 28.1 BP 132/86 Blood Pressure Location Lt brachial Position Sitting Pulse 64 Pulse Source Pulse Oximeter Pulse Oximetry (%) 97 Oxygen Delivery Method Room Air Intake Visit Reasons: Annual Exam Intake Note: Patient is here today for a physical. Watershed Coordinator Required: No Lemon Grower: Not Required per policy Accompanied by: Self / Same As Patient Allergies cefdinir Allergy (Unknown, Verified 04/29/23 09:16) diarrhea- c-diff, diarrhea hydrocodone [Vicodin] Allergy (Unknown, Verified 04/29/23 09:16) stomach upset SEASONAL ALLERGIES Allergy (Mild, Uncoded 04/29/23 09:16) ITCHY EYES; SNEEZING Medication List - Last Reconciled 04/29/23 by Semaj Moeller MD albuterol sulfate 90 mcg/actuation (Ventolin HFA) 2 puffs inhalation Q6H PRN 30 days cholecalciferol (vitamin D3) 50 mcg PO DAILY 90 days epinephrine (EpiPen 2-[place]) 0.3 mg (0.3 mL) IM Q4H PRN famotidine 40 mg PO BEDTIME PRN 90 days fluticasone propionate 110 mcg/actuation (Flovent HFA) 1 puff PO BID 30 days ibuprofen 800 mg PO Q8H PRN 30 days simvastatin 20 mg PO BEDTIME Tobacco use date assessed: 04/29/23 Fall risk assessment: No Falls in past year Last assessed Fall Risk: 04/29/23 Dental Screening Dental Screen Date: 04/29/23 Did you have a dental visit in the last 12 months?: Yes Did you have a dental problem in the last 6 months where you did not have access to dental care?: No Was dental information given to patient?: Patient has dentist HPI Annual Exam HPI Details Patient comes in today for his annual physical examination States that he feels okay He denies any headaches or dizziness Denies any fever or sore throat but he continues to have a recurrent cough, which has been going on for months now Notes that his cough seems worse at night and is mostly dry although he may cough up some whitish phlegm in the morning Recalls that he had a tracheostomy years ago and this may be indirectly causing or related to his cough (scar tissue in throat?) He denies any chest pains, no increased SOB No nausea/vomiting, no abdominal pain No change in bowel habits noted Denies any acute urinary symptoms Had his follow up labs done a few days ago - to discuss his results He is up-to-date with his colonoscopy screening - is due for repeat colonoscopy in 2026 [facility] Medical History Vitamin D deficiency Back pain Seasonal allergies Wedge compression fracture of L1 vertebra Asymmetric septal hypertrophy Multiple environmental allergies Overweight (BMI 25.0-29.9) GERD without esophagitis Asthma Pure hypercholesterolemia Surgical History History of tracheostomy Hx of colonoscopy No pertinent past surgical history Family History Mother No problems noted. Father No problems noted. 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 Cognitive needs: No Hearing needs: No Vision needs: Yes (Glasses) Questionnaire PHQ-9 Over the last 2 weeks, how often have you been bothered by any of the following problems? 1. Little interest or pleasure in doing things: not at all 2. Feeling down, depressed, or hopeless: not at all 3. Trouble falling or staying asleep, or sleeping too much: not at all 4. Feeling tired or having little energy: not at all 5. Poor appetite or overeating: not at all 6. Feeling bad about yourself - or that you are a failure or have let yourself or your family down: not at all 7. Trouble concentrating on things, such as reading the newspaper or watching television: not at all 8. Moving or speaking so slowly that other people could have noticed. Or the opposite - being so fidgety or restless that you have been moving around a lot more than usual: not at all 9. Thoughts that you would be better off or of hurting yourself in some way: not at all Total score: 0 Depression Screening Interpretation: Negative Depression Screening Done: Yes [id number] - PHQ-9 Billing: Yes Source: Developed by Drs. Juan Manuel Piña, Sandy Gallegos, Vikash Mendoza and colleagues, with an educational johnny from [employer]. Thrive Questionnaire Date Thrive assessed: 04/29/23 I am a: Patient What is your living situation today?: I have a steady place to live Within the past 12 months, did the food you bought not last and you didn't have the money to get more?: Never true Within the past 12 months, did you worry whether your food would run out before you got money to buy more?: Never true Do you have trouble paying for medicines?: No Do you have trouble getting transportation to medical appointments?: No Do you have trouble paying your heating and electricity bill?: No Do you have trouble taking care of your child, family member or friend?: No Do you have trouble with day-to-day activities such as bathing, preparing meals, shopping, managing finances, etc.?: No Are you currently unemployed and looking for a job?: No Are you interested in more education?: No Currently or been in a relationship where the following occur: no concerns reported THRIVE Score: 0 AUDIT C Alcohol Use Questionnaire (AUDIT-C) 1. How often do you have a drink containing alcohol?: Never Total Score: 0 Score Reviewed/Action Taken: Yes ZONIA-7 AMB Questionnaire ZONIA-7 Date ZONIA - 7 assessed: 04/29/23 Feeling nervous, anxious, or on edge: 0 = Not at all Not being able to stop or control worryin = Not at all Worrying too much about different things: 0 = Not at all Trouble relaxin = Not at all Being so restless that it is hard to sit still: 0 = Not at all Becoming easily annoyed or irritable: 0 = Not at all Feeling afraid as if something awful might happen: 0 = Not at all Total ZONIA-7 score (0-4 normal; 5-9 mild; 10-14 moderate; 15-21 severe): 0 Source: Developed by Sandy Mckinley B.W. El, Vikash Mendoza and colleagues, with an educational johnny from [employer]. Review of Systems Const Denies chills, Denies fatigue, Denies fever(s), Denies headache(s), Denies malaise and Denies weakness Eyes Denies blurry vision, Denies change in vision, Denies irritation and Denies itchy eyes ENT Denies dysphagia, Denies dizziness, Denies otalgia, Denies headache(s), Denies nasal congestion, Denies neck pain, Denies odynophagia and Denies sore throat Card Denies chest pain, Denies rapid heart rate, Denies irregular heart rhythm, Denies palpitations and Denies dyspnea Resp Denies chest congestion, Reports cough (recurrent, worse at night - see HPI), Denies dyspnea and Denies wheezing GI Denies abdominal pain, Denies bloating, Denies constipation, Denies dysphagia, Denies heartburn, Denies diarrhea, Denies nausea, Denies odynophagia and Denies vomiting Denies hematuria, Denies difficulty urinating, Denies dysuria, Denies urinary frequency and Denies urinary urgency Musc Reports back pain (over the lower back, on and off), Denies arthralgias, Denies joint swelling, Denies muscle weakness and Denies neck pain Skin/Breast Details: increased redness of a large patch of skin over the upper middle area of his forehead Denies lesions, Denies rash and Denies unusual bruising Neuro Denies dizziness, Denies headache(s), Denies paresthesias and Denies weakness Endo Denies fatigue and Denies palpitations Aller/Immun Denies itchy eyes and Denies wheezing Physical exam (Primary Care) Vital Signs: Last Vital Signs Pulse 64 04/29/23 08:59 BP 132/86 04/29/23 08:59 Pulse Ox 97 04/29/23 08:59 Oxygen Delivery Method Room Air 04/29/23 08:59 BMI result Body Mass Index 28.1 Tobacco/Smoking Status: Tobacco use Status Tobacco use date assessed 04/29/23 04/29/23 09:05 Patient Tobacco Use Status Never used Tobacco 04/29/23 09:05 e-Cigarette/Vaping Use Never Used 04/29/23 09:05 PHQ-9: PHQ-9 Score PHQ-9: Total score 0 04/29/23 09:05 Depression Screening Interpretation: Negative Thrive Assessment: Date of Thrive Assessment Date Thrive assessed 04/29/23 04/29/23 09:05 Currently or been in a relationship where the following occur: no concerns reported Const General: no acute distress, alert and awake Orientation/consciousness: patient oriented x3 [facility] Head: Yes normocephalic and Yes atraumatic Ears: external ears normal, TM's normal bilaterally and EAC's normal General nose exam: No nasal discharge present Face and sinus: Yes normal facial exam and Yes sinuses nontender Teeth and gingiva: dentition normal Throat: Yes posterior oropharynx normal and Yes tonsils normal (no TP congestion) Eyes Eyelids: Yes eyelids normal Conjunctivae: conjunctivae normal Pupils: Equal, round and reactive pupils present EOM: EOMs intact bilaterally Neck Neck: Yes no lymphadenopathy and Yes supple Thyroid: Thyroid normal Resp Auscultation: clear to auscultation bilaterally, no rales and no wheezes Cardio Rate: regular rate Rhythm: regular rhythm Heart sounds: no murmurs GI Palpation (GI): Soft to palpation, nontender and No hepatosplenomegaly present Auscultation: normal bowel sounds General: Yes no CVA tenderness Back/Spine/Pelvis Back: no CVA tenderness Thoracic/Lumbar Spine: lumbar spinal tenderness Skin Other: (+) large area of erythema over the upper middle area of the forehead; no other lesions noted Lesions: no lesions Neuro General: patient oriented x3, moves all extremities, no focal motor deficits and CN's II-XI intact bilaterally Cranial nerves: Yes Equal, round and reactive pupils present Cognition (Neuro): normal cognition Gait exam (Neuro): Normal gait present Extrem General: Yes no clubbing, cyanosis or edema Results Reviewed Results Reviewed: Laboratory Tests 04/25/23 10:05 WBC 8.5 Hgb 16.8 Hct 48.7 Plt Count 296 Sodium 139 Potassium 3.9 Creatinine 1.00 Estimated GFR > 60 Fasting Glucose 96 Calcium 10.2 AST 20 ALT 16 Triglycerides 111 Cholesterol 186 LDL Cholesterol, Calc 98 HDL Cholesterol 66 Prostate Specific Ag 0.96 25-OH Vitamin D Total 26.2 L TSH 2.73 Ur Specific [place] 1.020 Urine Protein Negative Urine Glucose (UA) Negative Urine Blood Negative Urine Nitrite Negative Ur Leukocyte Esterase Trace H Assessment and Plan Assessment & Plan (1) Annual physical exam: Code(s): Z00.00 - Encounter for general adult medical examination without abnormal findings Plan: Results of his labs done a few days ago reviewed and discussed with patient He is up-to-date with his cancer screenings (2) Pure hypercholesterolemia: Code(s): E78.00 - Pure hypercholesterolemia, unspecified Plan: Advised that his cholesterol levels have improved from previous Reinforced low cholesterol diet Continue Simvastatin 20 mg QD Will recheck his fasting lipids and labs in 6 months for follow up (3) Elevated blood pressure reading: Code(s): R03.0 - Elevated blood-pressure reading, without diagnosis of hypertension Plan: Reinforced low sodium diet - recommend systolic BP of 120 mm or less Patient is reminded to continue monitoring his blood pressure regularly (4) Wedge compression fracture of L1 vertebra: Code(s): S32.010A - Wedge compression fracture of first lumbar vertebra, initial encounter for closed fracture Qualifiers: Encounter type: sequela Fracture type: closed Qualified Code(s): S32.010S - Wedge compression fracture of first lumbar vertebra, sequela Plan: Lumbar spine MRI done on 09/14/2021 revealed (+) acute edematous osteoporotic type compression fracture at L1, with no significant spinal canal narrowing or cord compression noted Reinforced activity and weight-lifting restrictions Recalls that he was seen by neurosurgery a couple of years ago and was recommended kyphoplasty, which he declined at the time He was reportedly also advised back then that physical therapy and core muscle strengthening exercises would help him the best at the time Follow up with neurosurgery as scheduled or as needed (5) Asthma: Code(s): J45.909 - Unspecified asthma, uncomplicated Qualifiers: Asthma severity: moderate Asthma persistence: persistent Asthma complication type: uncomplicated Qualified Code(s): J45.40 - Moderate persistent asthma, uncomplicated Plan: Stable Continue Flovent HFA 110 mcg 1 inhalation BID and Albuterol HFA 2 inhalations every 6 hours as needed (6) GERD without esophagitis: Code(s): K21.9 - Gastro-esophageal reflux disease without esophagitis Plan: Dietary restrictions reinforced Takes OTC Famotidine 20 mg Q HS PRN with adequate control of his symptoms (7) Asymmetric septal hypertrophy: Code(s): I42.2 - Other hypertrophic cardiomyopathy Plan: Echocardiogram done initially in 2015 to further evaluate some EKG changes at the time revealed (+) septal hypertrophy with grade I LV diastolic dysfunction He was referred to and evaluated by cardiology back then - as patient was completely asymptomatic and has no family Hx of sudden cardiac , no intervention is indicated at the time except for repeat echocardiogram in 2 years for follow up Repeat echo in 2019 revealed normal LV systolic function with mild LV hypertrophy with grade 1 LV diastolic dysfunction, mild left atrial enlargement, mild AR and normal LV systolic pressure with no pericardial effusion Patient remains asymptomatic and no intervention is again indicated at present Consider repeating echocardiogram again in 4 to 5 years for follow up unless patient starts experiencing any cardiac-related symptoms (8) Multiple environmental allergies: Code(s): Z91.09 - Other allergy status, other than to drugs and biological substances Plan: Takes OTC Diphenhydramine 25 mg 2 tablets every 4 to 6 hours as needed and Fluticasone 50 mcg nasal spray QD PRN Patient also carries an EpiPen auto-injector to use when needed He reportedly had some anaphylactic reaction in late April 2022, which he assumed was from something he ate back then (9) Right knee pain: Code(s): M25.561 - Pain in right knee Qualifiers: Chronicity: unspecified Qualified Code(s): M25.561 - Pain in right knee Plan: Patient recalls suffering a right knee injury while he was playing 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 Turk) and see if at least an office laryngoscopy can be done to look into his this He is also advised to start back on OTC Fluticasone 50 mcg nasal spray QD PRN as allergies may also be a possible cause of his recurrent coughing (11) Skin erythema: Code(s): L53.9 - Erythematous condition, unspecified Plan: Will refer him to dermatology for further evaluation and management of the large erythematous patch of skin on the middle of his forehead; as he has not had dermatologic check up/exam in a few years now, will also send him to dermatology for his annual skin check (12) Vitamin D deficiency: Code(s): E55.9 - Vitamin D deficiency, unspecified Plan: Improving - continue OTC Vitamin D3 2000 units QD (13) Overweight (BMI 25.0-29.9): Code(s): E66.3 - Overweight Plan: Reinforced diet/exercise as tolerated/lose weight Plan Follow up in 6 months Orders: Orders Lipid Panel 6 Months E78.00 - Pure hypercholesterolemia, unspecified UA CC w/rflx Micro + Cult 6 Months R30.0 - Dysuria Complete Blood Count Auto Diff 6 Months D64.9 - Anemia, unspecified Comprehensive [place]. Panel Fast 6 Months E78.00 - Pure hypercholesterolemia, unspecified TSH reflex Free T4 6 Months E78.00 - Pure hypercholesterolemia, unspecified Vitamin D 25-OH Total 6 Months E55.9 - Vitamin D deficiency, unspecified Referrals Dermatology Referral L53.9 - Erythematous condition, unspecified, Z12.83 - Encounter for screening for malignant neoplasm of skin Medications: Refilled ibuprofen Take with food 800 mg PO Q8H 30 days PRN 90 tabs 3RF pain Coding Level of Care Code Est Pt Prev Care >65y(17093) Diagnoses Annual physical exam Z00.00 Pure hypercholesterolemia E78.00 Elevated blood pressure reading R03.0 Closed wedge compression fracture of L1 vertebra, sequela S32.010S Encounter type: sequela Fracture type: closed Moderate persistent asthma without complication J45.40 Asthma severity: moderate Asthma persistence: persistent Asthma complication type: uncomplicated GERD without esophagitis K21.9 Asymmetric septal hypertrophy I42.2 Multiple environmental allergies Z91.09 Right knee pain, unspecified chronicity M25.561 Chronicity: unspecified Recurrent nonproductive cough R05.8 Skin erythema L53.9 Vitamin D deficiency E55.9 Overweight (BMI 25.0-29.9) E66.3
[2023-04-29 08:59] VITALS: BP 132/86; PULSE 64; O2SAT 97; BMI 28.1
== END 2023-04-29 09:36 | disposition home or self-care (01) ==
PROVIDERS: Visit Provider Internal Medicine
DX: Z00.00 Encounter for general adult medical examination without abnormal findings (principal); E78.00 Pure hypercholesterolemia, unspecified; I42.2 Other hypertrophic cardiomyopathy; R03.0 Elevated blood-pressure reading, without diagnosis of hypertension; S32.010S Wedge compression fracture of first lumbar vertebra, sequela; J45.40 Moderate persistent asthma, uncomplicated; K21.9 Gastro-esophageal reflux disease without esophagitis; Z91.09 Other allergy status, other than to drugs and biological substances; M25.561 Pain in right knee; R05.8 Other specified cough; L53.9 Erythematous condition, unspecified; E55.9 Vitamin D deficiency, unspecified
CPT/HCPCS: 99397

== ENCOUNTER 2023-05-13 13:58 | Outpatient (AMB) | payer OTHER, MEDICARE, SELFPAY ==
[2023-05-13 13:58] VITALS: BP 140/80; PULSE 60; TEMP 36.5; O2SAT 97; BMI 27.2
--- NOTE | 2023-05-13 13:58 | AM.OFFWIN_ITS ---
Intake Vital Signs 05/13/23 13:58 Height 5 ft 9 in Weight 184 lb BMI 27.2 BP 140/80 H Blood Pressure Location Lt brachial Position Sitting Pulse 60 Pulse Source Pulse Oximeter Temp 97.7 F Temp Source Temporal Artery Scan Pulse Oximetry (%) 97 Oxygen Delivery Method Room Air Intake Visit Reasons: EP Rash/AB issues Intake Note: pt is here today for rash and AB issues 1 week ago Patient Tobacco Use Status: Never used Tobacco Allergies cefdinir Allergy (Unknown, Verified 05/13/23 14:04) diarrhea- c-diff, diarrhea hydrocodone [Vicodin] Allergy (Unknown, Verified 05/13/23 14:04) stomach upset SEASONAL ALLERGIES Allergy (Mild, Uncoded 04/29/23 09:16) ITCHY EYES; SNEEZING Do you need a note to return to daycare/school/sports/work: No HPI HPI Comments History of Present Illness Details This is a 67-year-old male with past medical history of hypertension, hyperlipidemia, L1 compression fractures, gastroesophageal reflux disease and asthma presenting for evaluation of an itchy and painful sensation along his left flank that he 1st noticed approximately 1 week ago. Patient states he was working under his truck and thought he may have scraped his back on the cement. The patient has been taking ibuprofen only with moderate relief of his discomfort. Patient denies any overt injury or trauma and denies any urinary symptoms including dysuria, urinary frequency or hematuria. Approximately 3 days ago he noticed blisters across his left flank, back and now on his abdomen. [facility] Medical History Vitamin D deficiency Back pain Seasonal allergies Wedge compression fracture of L1 vertebra Asymmetric septal hypertrophy Multiple environmental allergies Overweight (BMI 25.0-29.9) GERD without esophagitis Asthma Pure hypercholesterolemia Surgical History History of tracheostomy Hx of colonoscopy No pertinent past surgical history Family History Mother No problems noted. Father No problems noted. 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 Cognitive needs: No Hearing needs: No Vision needs: Yes (Glasses) Review of Systems Const All systems reviewed & are unremarkable except as noted in HPI and below Reports no additional complaints, Denies chills and Denies fever(s) Eyes Reports no additional complaints ENT Reports no additional complaints Physical Exam Vital Signs: Last Vital Signs Temp 97.7 F 05/13/23 13:58 Pulse 60 05/13/23 13:58 BP 140/80 H 05/13/23 13:58 Pulse Ox 97 05/13/23 13:58 Oxygen Delivery Method Room Air 05/13/23 13:58 BMI result Body Mass Index 27.2 Const General: cooperative, healthy appearing, comfortable and no acute distress Nutritional Appearance: average body habitus Orientation/consciousness: patient oriented x3 Limitations: no limitations General: Yes no CVA tenderness (left) Back/Spine/Pelvis Back: no CVA tenderness (left) Skin Other: there are erythematous papules and vesicles on the posterior trunk, left flank and left abdomen in a dermatomal pattern T9/T10 Neuro General: patient oriented x3 Psych Appearance: grossly normal Mental Status: mental status grossly normal Insight: Good insight present (Psych) Judgement: Good judgement present (Psych) Assessment & Plan Assessment & Plan (1) Herpes zoster: Comment: Patient states he has ibuprofen 800 mg tablets at home and he will be prescribed valacyclovir. Contact precautions are discussed. Code(s): B02.9 - Zoster without complications Qualifiers: Herpes zoster complications: without complications Qualified Code(s): B02.9 - Zoster without complications Plan: Valacyclovir 1 g t.i.d. x7 days. Ibuprofen 800 mg every 8 hours only as needed. Medications: New valacyclovir 1,000 mg PO TID 21 tabs 0RF Coding Level of Care Code Est Pt Level 3 (59590) Diagnoses Herpes zoster without complication B02.9 Herpes zoster complications: without complications Time Spent (min) 20
== END 2023-05-13 14:43 | disposition home or self-care (01) ==
PROVIDERS: PCP Internal Medicine; Visit Provider Physician Assistant
DX: B02.9 Zoster without complications (principal)
CPT/HCPCS: 99213

== ENCOUNTER 2023-05-21 20:05 | Emergency (ER) | payer OTHER, MEDICARE, SELFPAY ==
--- NOTE | ~2023-05-21 | XR_ITS ---
EXAMINATION: XR LUMBOSACRAL SPINE CLINICAL INFORMATION: Compression fracture, leg weakness COMPARISON: MRI from 09/14/2021 TECHNIQUE: Three views of the lumbosacral spine. FINDINGS: Severe compression fracture seen of the L1 vertebral body which given differences in technique is unchanged in severity compared to the prior MRI consistent with chronic compression deformity. There is associated kyphosis of the thoracolumbar spine. Remaining vertebral bodies are intact without evidence of acute fracture or subluxation. XR/XR lumbar spine 2-3V IMPRESSION: Stable chronic compression deformity of L1. No acute process
--- NOTE | ~2023-05-21 | CT_ITS ---
EXAMINATION: CT HEAD WITHOUT CONTRAST CLINICAL INFORMATION: Unsteady gait. COMPARISON: CT head 05/25/2012. TECHNIQUE: Contiguous axial imaging was performed from the skull base to vertex without intravenous administration of contrast. This CT examination was performed using dose optimization techniques as appropriate, variously including the following: *Automated exposure control *Adjustment of mA and/or kV according to patient size (this includes techniques or standardized protocols for targeted exams where dose is matched to indication/reason for exam; i.e. extremities or head) *Use of iterative reconstruction technique DLP: 812 mGy-cm FINDINGS: There is no acute intracranial hemorrhage or abnormal extra-axial collection. No intracranial mass effect or midline shift. Lateral and third ventricles are normal. No hydrocephalus. Chamberlain-white matter differentiation is preserved and there is no evidence of acute territorial infarct. The calvarium and skull base are intact. No mastoid or middle ear effusion. Mild paranasal sinus disease primarily affecting the ethmoid air cells and the alveolar recesses of the maxillary sinuses. CT/CT head/brain wo IV con IMPRESSION: Unremarkable CT scan of the head. No evidence of acute territorial infarct or hemorrhage.
[2023-05-21 20:57] VITALS: BP 157/88; PULSE 99; RESP 16; TEMP 36.7; O2SAT 96
[2023-05-21 21:03] VITALS: BP 138/76; BP 170/98; PULSE 112; PULSE 98; RESP 16; TEMP 36.8; O2SAT 95; BMI 27.2
--- NOTE | 2023-05-21 21:18 | ED.GENADULT ---
HPI - General Adult General Chief complaint: Fall Stated complaint: bilat leg weakness,lowered to ground, no thinners Time Seen by Provider: 05/21/23 21:16 Source: patient Mode of arrival: ambulatory Limitations: no limitations History of Present Illness HPI narrative: Patient comes here with generalized weakness noticed more weak in lower extremities today since 13:00 unable to ambulate was crawling no bladder or bowel incontinence no increased back patient had shingles left lower abdomen last week getting better after treatment patient drinks alcohol 2- 3 times a week had shingles last week at dermatomal level left T10 no significant increase in back pain no fever no chills no headache or neck pain no numbness in the perineum hearing Related Data Previous Rx's ?Medication ?Instructions ?Recorded fluticasone propionate 110 1 puff PO BID 30 days #12 grams 04/22/22 mcg/actuation HFA aerosol inhaler (Flovent HFA) epinephrine 0.3 mg/0.3 mL 0.3 mg (0.3 mL) IM Q4H PRN 05/09/22 injection, auto-injector (EpiPen anaphylaxis #2 ea 2-[place]) cholecalciferol (vitamin D3) 50 50 mcg PO DAILY 90 days #90 caps 10/25/22 mcg (2,000 unit) capsule ibuprofen 800 mg tablet 800 mg PO Q8H PRN pain 30 days #90 04/29/23 tabs albuterol sulfate 90 mcg/actuation 2 puff inhalation Q6H PRN 05/08/23 aerosol inhaler (Ventolin HFA) shortness of breath or wheezing 30 days #8.5 grams simvastatin 20 mg tablet 20 mg PO BEDTIME #30 tabs 05/08/23 valacyclovir 1 gram tablet 1,000 mg PO TID #21 tabs 05/13/23 Allergies Allergy/AdvReac Type Severity Reaction Status Date / Time cefdinir Allergy Unknown diarrhea- Verified 05/21/23 21:05 c-diff, diarrhea hydrocodone [Vicodin] Allergy Unknown stomach Verified 05/21/23 21:05 upset SEASONAL ALLERGIES Allergy Mild ITCHY Uncoded 05/21/23 21:05 EYES; SNEEZING Review of Systems Review of Systems: Yes all other systems are reviewed and are negative PMFSH Past Medical History Medical History Vitamin D deficiency Back pain Seasonal allergies Wedge compression fracture of L1 vertebra Asymmetric septal hypertrophy Multiple environmental allergies Overweight (BMI 25.0-29.9) GERD without esophagitis Asthma Pure hypercholesterolemia Surgical History History of tracheostomy Hx of colonoscopy No pertinent past surgical history Family History Family History Mother No problems noted. Father No problems noted. 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 Cognitive needs: No Hearing needs: No Vision needs: Yes (Glasses) Physical Exam ED Vital Signs: Vital Signs - 24 hr 05/21/23 20:57 05/21/23 21:03 05/22/23 00:04 Temperature 98.0 F 98.2 F Pulse Rate 99 98 95 Respiratory Rate 16 16 16 Blood Pressure 157/88 H 138/76 159/68 H Pulse Oximetry 96 95 96 Oxygen Delivery Method Room Air Room Air Room Air 05/22/23 00:38 Temperature 0 F L Pulse Rate 95 Respiratory Rate 16 Blood Pressure 159/68 H Pulse Oximetry 96 Oxygen Delivery Method Room Air BMI result Body Mass Index 27.2 Appearance: Alert. Oriented X3. No acute distress. Eyes: PERRLA, No Nystagmus ENT: Pharynx normal. Oral Mucosa moist Neck: Normal inspection. Neck supple. CVS: Normal heart rate and rhythm. Pulses normal. Respiratory: No respiratory distress. Equal air entry bilateral, no wheezing/rales/rhonchi Abdomen: Soft and nontender. Bowel sounds are present, no mass palpable, no CVA tenderness Skin: Skin warm and dry. Normal skin color. Normal skin turgor. Healing herpes zoster rash left T10 dermatome Extremities: No lower extremity edema. No calf tenderness Neuro: Oriented X 3. No motor deficit. No sensory deficit.No cerebellar signs , cranial nerves II-XII intact deep tendon reflexes 2+ bilateral overall muscular atrophy lower extremity Medications Administered Discontinued Medications Generic Name Dose Route Start Last Admin Trade Name Jusq PRN Reason Stop Dose Admin Sodium Chloride 1,000 mls @ 999 mls/hr 05/21/23 22:47 05/21/23 23:57 Ns IV 05/21/23 23:47 Infused .Q1H1M ONE Infusion Medical Decision Making Medical Decision Making [facility] Narrative: Patient with lower extremity weakness with normal reflexes normal sensory motor feeling patient ambulatory in the ED elevated CPK suggestive of myopathy secondary to atorvastatin use and alcohol use patient was given IV fluids in the ER advised to stop taking atorvastatin and stop drinking alcohol drink plenty of fluids CT scan of the head is negative for acute, patient does have L1 compression fracture chronic no significant lower back pain no history of trauma no bladder or bowel involvement no signs of spinal cord injury patient does have normal sensation the sacral area and no incontinence Differential Diagnosis Differential Diagnoses: The differential diagnosis associated with the presentation includes GBS/myopathy/lumbar fracture/spinal cord compression/cauda equina Lab Data [facility] Lab Attestation statement: I reviewed the patient's lab results. 05/21/23 22:00 05/21/23 22:00 Labs: Lab Results 05/21/23 Range/Units 22:00 WBC 15.2 H (4.8-10.8) X10*3/uL RBC 5.13 (4.60-5.80) X10*6/uL Hgb 16.2 (14.0-18.0) g/dl Hct 46.6 (42.0-52.0) % MCV 90.8 (80.0-98.0) fL MCH 31.6 (27.0-33.0) pg MCHC 34.8 (31.0-36.0) g/dl RDW 12.4 (11.0-16.0) % Plt Count 314 (160-400) X10*3/uL MPV 9.3 L (9.4-12.4) fL Immature Gran % (Auto) 0.8 H (0.0-0.4) % Neut % (Auto) 83.4 H (45-73) % Lymph % (Auto) 7.7 L (20-40) % [place] % (Auto) 7.5 (2-11) % Eos % (Auto) 0.1 (0-4) % Baso % (Auto) 0.5 (0-2) % Lymph # (Auto) 1.2 (1.2-4.9) X10*3/uL [place] # (Auto) 1.1 (0.1-1.2) X10*3/uL Eos # (Auto) 0.0 (0.0-0.4) X10*3/uL Baso # (Auto) 0.1 (0.0-0.2) X10*3/uL Abs Immat Gran (auto) 0.12 H (0.00-0.03) X10*3/uL Absolute Neuts (auto) 12.7 H (2.0-8.3) x10*3/uL Absolute Nucleated RBC 0.000 (0.0-0.012) X10*3/uL Nucleated RBC % (auto) 0.0 (0.0-0.2) /100WBC Sodium 137 (135-145) mmol/L Potassium 4.1 (3.3-5.1) mmol/L Chloride 103 (96-108) mmol/L Carbon Dioxide 20 L (22-29) mmol/L Anion Gap 18 (12-20) BUN 8 L (9-16) mg/dL Creatinine 0.98 (0.5-1.4) mg/dL Estim Creat Clear Calc 74.1 Estimated GFR > 60 Random Glucose 94 (60-115) mg/dL Calcium 9.3 D (8.4-10.2) mg/dL Magnesium 2.5 (1.6-2.6) mg/dL Total Bilirubin 0.6 (0.0-1.0) mg/dL AST 49 H (5-37) U/L ALT 24 (0-40) U/L Alkaline Phosphatase 80 (39-117) U/L Total Creatine Kinase 1337 H (38-174) U/L Total Protein 7.7 (6.5-8.0) g/dL Albumin 4.3 (3.5-5.0) g/dL Ethyl Alcohol 149 mg/dL Independent Interpretation I performed an independent interpretation of an: Plain X-Ray Radiology Impression Discussion of test interpretation with radiology: I have reviewed the radiologist's reading. Radiologist Impression: [facility] [address] [place] [address] XRay Report Signed Patient: Colin Chappell MR#: [id number] : 1955 Acct:[id number] Age/Sex: 67 / M ADM Date: 05/21/23 Loc: .ED Attending Dr: Ordering Physician: Elmo Ny MD Date of Service: 05/21/23 Procedure(s): XR lumbar spine 2-3V Accession Number(s): [id number] cc: Physician,Unknown ; Elmo Ny MD~ EXAMINATION: XR LUMBOSACRAL SPINE CLINICAL INFORMATION: Compression fracture, leg weakness COMPARISON: MRI from 09/14/2021 TECHNIQUE: Three views of the lumbosacral spine. FINDINGS: Severe compression fracture seen of the L1 vertebral body which given differences in technique is unchanged in severity compared to the prior MRI consistent with chronic compression deformity. There is associated kyphosis of the thoracolumbar spine. Remaining vertebral bodies are intact without evidence of acute fracture or subluxation. XR/XR lumbar spine 2-3V IMPRESSION: Stable chronic compression deformity of L1. No acute process Critical Care Time Critical Care Time Critical Care Time: Yes Total Critical Care Time: 40 Attestation: The patient was critically ill with a high probability of imminent or life threatening deterioration. I spent greater than 45???minutes of discontinuous time evaluating the patient,delivering critical care at the bedside, discussing and evaluating pertinent data with consultants. Critical care time does not include time spent performing separately billable procedures or teaching. Total time spent performing critical care was 40??minutes. Discharge Plan Discharge Clinical Impression: Statin myopathy, Non-traumatic rhabdomyolysis Patient Disposition: Home, Self-Care Instructions: Rhabdomyolysis (ED) Additional Instructions: Stop atorvastatin for now as it is damaging muscles Stop drinking alcohol Started drinking lot of water Recheck blood in 2 days Report to the ER if weakness continues or gets worse Prescriptions: No Action Flovent HFA 110 mcg/actuation HFA aerosol inhaler 1 puff PO BID 30 Days Qty: 12 5RF albuterol sulfate [Ventolin HFA] 90 mcg/actuation HFA aerosol inhaler 2 puff inhalation Q6H PRN (Reason: shortness of breath or wheezing) 30 Days Qty: 8.5 5RF simvastatin 20 mg tablet 20 mg PO BEDTIME Qty: 30 0RF epinephrine [EpiPen 2-[place]] 0.3 mg/0.3 mL auto-injector 0.3 mg IM Q4H PRN (Reason: anaphylaxis) Qty: 2 0RF ibuprofen 800 mg tablet 800 mg PO Q8H PRN (Reason: pain) 30 Days Qty: 90 3RF Rx Instructions: Take with food cholecalciferol (vitamin D3) 50 mcg (2,000 unit) capsule 50 mcg PO DAILY 90 Days Qty: 90 3RF valacyclovir 1 gram tablet 1,000 mg PO TID Qty: 21 0RF Interventions: ED Discharge Assessment Last Done: 05/22/23 00:38 Discharge Date/Time: 05/22/23 00:39 Print Language: Hebrew
[2023-05-21 22:06] LABS: Basophils Absolute Auto 0.1 X10*3/uL (0.0-0.2); Basophils Percent Auto 0.5 % (0-2); Eosinophils Percent Auto 0.1 % (0-4); Hematocrit 46.6 % (42.0-52.0); Hemoglobin 16.2 g/dl (14.0-18.0); Imm Gran Abs Auto 0.12 X10*3/uL (0.00-0.03); Imm Gran Pct Auto 0.8 % (0.0-0.4); Lymphocytes Absolute Auto 1.2 X10*3/uL (1.2-4.9); Lymphocytes Percent Auto 7.7 % (20-40); MANUAL DIFF FLAG NO; Mean Corpuscular HGB Conc 34.8 g/dl (31.0-36.0); Mean Corpuscular Hemoglobin 31.6 pg (27.0-33.0); Mean Corpuscular Volume 90.8 fL (80.0-98.0); Mean Platelet Volume 9.3 fL (9.4-12.4); Monocytes Absolute Auto 1.1 X10*3/uL (0.1-1.2); Monocytes Percent Auto 7.5 % (2-11); Neutrophils Absolute Auto 12.7 x10*3/uL (2.0-8.3); Neutrophils Percent Auto 83.4 % (45-73); Platelet Count 314 X10*3/uL (160-400); Red Blood Count 5.13 X10*6/uL (4.60-5.80); Red Cell Distribution Width 12.4 % (11.0-16.0); White Blood Count 15.2 X10*3/uL (4.8-10.8)
[2023-05-21 22:21] LABS: Ethanol 149 mg/dL
[2023-05-21 22:23] LABS: Alanine Aminotransferase 24 U/L (0-40); Albumin Level 4.3 g/dL (3.5-5.0); Alkaline Phosphatase 80 U/L (39-117); Anion Gap 18 (12-20); Aspartate Amino Transferase 49 U/L (5-37); Bilirubin Total 0.6 mg/dL (0.0-1.0); Blood Urea Nitrogen 8 mg/dL (9-16); Calcium 9.3 mg/dL (8.4-10.2); Carbon Dioxide 20 mmol/L (22-29); Chloride 103 mmol/L (96-108); Creatinine Clr Calc Pharmacy 74.1; Estimated Glomerular Filt Rate > 60; Glucose Random 94 mg/dL (60-115); Magnesium 2.5 mg/dL (1.6-2.6); Potassium 4.1 mmol/L (3.3-5.1); Sodium 137 mmol/L (135-145); Total Protein 7.7 g/dL (6.5-8.0)
[2023-05-21] MEDS: 0.9 % Sodium Chloride 1,000 ML 999 ML IV (22:56)
--- NOTE | 2023-05-21 22:56 | MHC.EDTECH ---
pt given water and fadumo abdelrahmanDr. said that this was okay
[2023-05-22 00:04] VITALS: BP 159/68; PULSE 95; RESP 16; O2SAT 96
[2023-05-22 00:38] VITALS: BP 159/68; PULSE 95; RESP 16; TEMP -17.7; TEMP 0; O2SAT 96
== END 2023-05-22 00:39 | disposition home or self-care (01) ==
PROVIDERS: Emergency Provider Internal Medicine
DX: M62.82 Rhabdomyolysis (principal); G72.89 Other specified myopathies; R26.81 Unsteadiness on feet; M54.6 Pain in thoracic spine; R51.9 Headache, unspecified; R11.0 Nausea; Z79.899 Other long term (current) drug therapy
CPT/HCPCS: 36415; 70450; 72100; 80053; 80307; 82550; 83735; 85025; 96360; 99284

== ENCOUNTER 2023-10-31 09:12 | Outpatient (AMB) | payer OTHER, MEDICARE, SELFPAY ==
--- NOTE | 2023-10-31 09:15 | MHC.PC.OV ---
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: No Accompanied by: Self / Same As Patient Allergies cefdinir Allergy (Unknown, Verified 10/31/23 09:50) diarrhea- c-diff, diarrhea hydrocodone [Vicodin] Allergy (Unknown, Verified 10/31/23 09:50) stomach upset simvastatin Adverse Reaction (Severe, Verified 10/31/23 12:00) rhabdomyolysis; myalgia SEASONAL ALLERGIES Allergy (Mild, Uncoded 10/31/23 09:50) ITCHY EYES; SNEEZING Medication List - Last Reconciled 10/31/23 by Semaj Moeller MD albuterol sulfate 90 mcg/actuation (Ventolin HFA) 2 puffs inhalation Q6H PRN 30 days cholecalciferol (vitamin D3) 50 mcg PO DAILY 90 days epinephrine (EpiPen 2-[place]) 0.3 mg (0.3 mL) IM Q4H PRN ibuprofen 800 mg PO Q8H PRN 30 days Tobacco use date assessed: 10/31/23 Fall risk assessment: No Falls in past year Last assessed Fall Risk: 10/31/23 Dental Screening Dental Screen Date: 10/31/23 Did you have a dental visit in the last 12 months?: Yes Did you have a dental problem in the last 6 months where you did not have access to dental care?: No Was dental information given to patient?: Patient has dentist HPI 6 month f/u HPI Details Patient comes in today for his follow up visit States that he currently feels okay Relates that he had shingles about a week after his last visit with me in April 2023 and he went to the walk-in clinic for this and was prescribed oral Valtrex for a week He also went to the ER back in early July 2023 for increasing bilateral leg weakness and worsening myalgia and low back pain Work ups done revealed significantly elevated CPK level at 1337 U/L - this was thought to be due to the effects of his cholesterol medication at the time and Simvastatin was therefore discontinued Patient relates that his symptoms gradually resolved since then and he currently has no further issues with myalgia or weakness Notes that he has been coughing a lot more than usual lately, especially at night, and he seems to cough up a lot of clear to whitish phlegm at times He denies any fever or sore throat and does not feel like he is coming down with a cold lately States that he uses his Albuterol inhaler as needed and has been using it more often recently He has NOT been on Flovent inhaler in a while now and he has not had the Rx refilled since April of 2022 States that he does not remember when he actually stopped using it He denies any headaches or dizziness Denies any chest pains, no increased SOB aside from the on and off coughing and some mild chest congestion at times that are promptly relieved when he uses his Albuterol inhaler No nausea/vomiting, no abdominal pain No change in bowel habits noted He was not able to get his follow up labs done prior to his visit today [facility] Medical History Vitamin D deficiency Back pain Seasonal allergies Wedge compression fracture of L1 vertebra Asymmetric septal hypertrophy Multiple environmental allergies Overweight (BMI 25.0-29.9) GERD without esophagitis Asthma Pure hypercholesterolemia Surgical History History of tracheostomy Hx of colonoscopy No pertinent past surgical history Family History Mother No problems noted. Father No problems noted. 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 Cognitive needs: No Hearing needs: No Vision needs: Yes (Glasses) Questionnaire PHQ-9 Over the last 2 weeks, how often have you been bothered by any of the following problems? 1. Little interest or pleasure in doing things: not at all 2. Feeling down, depressed, or hopeless: not at all 3. Trouble falling or staying asleep, or sleeping too much: not at all 4. Feeling tired or having little energy: not at all 5. Poor appetite or overeating: not at all 6. Feeling bad about yourself - or that you are a failure or have let yourself or your family down: not at all 7. Trouble concentrating on things, such as reading the newspaper or watching television: not at all 8. Moving or speaking so slowly that other people could have noticed. Or the opposite - being so fidgety or restless that you have been moving around a lot more than usual: not at all 9. Thoughts that you would be better off or of hurting yourself in some way: not at all Total score: 0 Depression Screening Interpretation: Negative Depression Screening Done: Yes 24970 - PHQ-9 Billing: Yes Source: Developed by Drs. Juan Manuel Piña, Sandy Gallegos, Vikash Mendoza and colleagues, with an educational johnny from [employer]. Thrive Questionnaire Date Thrive assessed: 10/31/23 I am a: Patient What is your living situation today?: I have a steady place to live Within the past 12 months, did the food you bought not last and you didn't have the money to get more?: Never true Within the past 12 months, did you worry whether your food would run out before you got money to buy more?: Never true Do you have trouble paying for medicines?: No Do you have trouble getting transportation to medical appointments?: No Do you have trouble paying your heating and electricity bill?: No Do you have trouble taking care of your child, family member or friend?: No Do you have trouble with day-to-day activities such as bathing, preparing meals, shopping, managing finances, etc.?: No Are you currently unemployed and looking for a job?: No Are you interested in more education?: No Please select the resources that you would like help with: None Currently or been in a relationship where the following occur: No concerns reported THRIVE Score: 0 AUDIT C Alcohol Use Questionnaire (AUDIT-C) 1. How often do you have a drink containing alcohol?: Never 3. How often do you have six or more drinks on one occasion?: Never Total Score: 0 Score Reviewed/Action Taken: Yes ZONIA-7 AMB Questionnaire ZONIA-7 Date ZONIA - 7 assessed: 10/31/23 Feeling nervous, anxious, or on edge: 0 = Not at all Not being able to stop or control worryin = Not at all Worrying too much about different things: 0 = Not at all Trouble relaxin = Not at all Being so restless that it is hard to sit still: 0 = Not at all Becoming easily annoyed or irritable: 0 = Not at all Feeling afraid as if something awful might happen: 0 = Not at all Total ZONIA-7 score (0-4 normal; 5-9 mild; 10-14 moderate; 15-21 severe): 0 Source: Developed by Drs. Juan Manuel Piña, Sandy Gallegos, Vikash Mendoza and colleagues, with an educational johnny from [employer]. Review of Systems Const Denies chills, Denies fatigue, Denies fever(s) and Denies headache(s) ENT Denies dysphagia, Denies dizziness, Denies otalgia, Denies headache(s), Reports nasal discharge (on and off lately, especially at night), Denies neck pain, Denies odynophagia and Denies sore throat Card Denies chest pain, Denies irregular heart rhythm, Denies palpitations and Denies dyspnea Resp Denies chest congestion, Reports cough (recurrent, worse at night - coughs up minimal whitish phlegm at times), Denies excessive phlegm production, Denies dyspnea and Denies wheezing GI Denies abdominal pain, Denies constipation, Denies dysphagia, Denies heartburn, Denies diarrhea, Denies nausea, Denies odynophagia and Denies vomiting Denies difficulty urinating, Denies dysuria and Denies urinary frequency Musc Reports back pain (over the lower back, on and off), Denies arthralgias and Denies neck pain Skin/Breast Denies rash Neuro Denies dizziness, Denies headache(s) and Denies paresthesias Endo Denies fatigue and Denies palpitations Aller/Immun Denies wheezing Physical exam (Primary Care) Vital Signs: Last Vital Signs Pulse 61 10/31/23 09:16 BP 134/72 10/31/23 09:16 Pulse Ox 96 10/31/23 09:16 Oxygen Delivery Method Room Air 10/31/23 09:16 BMI result Body Mass Index 27.1 Tobacco/Smoking Status: Tobacco use Status Tobacco use date assessed 10/31/23 10/31/23 09:17 Patient Tobacco Use Status Never used Tobacco 10/31/23 09:17 e-Cigarette/Vaping Use Never Used 10/31/23 09:17 PHQ-9: PHQ-9 Score PHQ-9: Total score 0 10/31/23 10:14 Depression Screening Interpretation: Negative Thrive Assessment: Date of Thrive Assessment Date Thrive assessed 10/31/23 10/31/23 09:17 Currently or been in a relationship where the following occur: No concerns reported Const General: no acute distress and alert HENMT Ears: TM's normal bilaterally and EAC's normal Throat: Yes posterior oropharynx normal and Yes tonsils normal (no TP congestion) Neck Neck: Yes no lymphadenopathy and Yes supple Thyroid: Thyroid normal Resp Auscultation: clear to auscultation bilaterally, no rales and no wheezes Cardio Rate: regular rate Rhythm: regular rhythm Heart sounds: no murmurs GI Palpation (GI): Soft to palpation and nontender Auscultation: normal bowel sounds General: Yes no CVA tenderness Back/Spine/Pelvis Back: no CVA tenderness Thoracic/Lumbar Spine: lumbar spinal tenderness (mild) Skin Rashes: no rashes Extrem General: Yes no clubbing, cyanosis or edema Assessment and Plan Assessment & Plan (1) Pure hypercholesterolemia: Code(s): E78.00 - Pure hypercholesterolemia, unspecified Plan: Reinforced low cholesterol diet He was taken OFF Simvastatin 20 mg QD a few months ago when he presented to the ER with increased myalgia and leg weakness and was found to have significantly elevated CPK level, consistent with rhabdomyolysis, likely due to his statin Rx Have advised that especially since he is no longer on Rx for his cholesterol, he should try to get his previously ordered labs done MARCOS for follow up of his lipid profile and if his cholesterol levels have increased significantly, we may have to try to figure out what else he can take for his high cholesterol level Will recheck his fasting lipids and labs again in 6 months for follow up (2) Elevated blood pressure reading: Code(s): R03.0 - Elevated blood-pressure reading, without diagnosis of hypertension Plan: Reinforced low sodium diet - recommend systolic BP of 120 mm or less His blood pressure appears much better today than his previous visits Patient is reminded to continue monitoring his blood pressure regularly (3) Wedge compression fracture of L1 vertebra: Code(s): S32.010A - Wedge compression fracture of first lumbar vertebra, initial encounter for closed fracture Qualifiers: Encounter type: sequela Fracture type: closed Qualified Code(s): S32.010S - Wedge compression fracture of first lumbar vertebra, sequela Plan: Lumbar spine MRI done on 09/14/2021 revealed (+) acute edematous osteoporotic type compression fracture at L1, with no significant spinal canal narrowing or cord compression noted Follow up lumbar spine x-rays done in May 2023 revealed stable chronic compression deformity of L1 with no acute process Reinforced activity and weight-lifting restrictions Recalls that he was seen by neurosurgery a couple of years ago and was recommended kyphoplasty, which he declined at the time He was reportedly also advised back then that physical therapy and core muscle strengthening exercises would help him the best at the time Follow up with neurosurgery as scheduled or as needed (4) Asthma: Code(s): J45.909 - Unspecified asthma, uncomplicated Qualifiers: Asthma complication type: uncomplicated Asthma persistence: persistent Asthma severity: moderate Qualified Code(s): J45.40 - Moderate persistent asthma, uncomplicated Plan: He was supposed to be on maintenance Tx with Flovent HFA 110 mcg 1 inhalation BID but it appears that he has not been using this in a while now Have reminded him again that Albuterol HFA 2 inhalations every 6 hours as needed works well but it is only a RESCUE inhaler and its effects tend to last no more than a few hours at best Advised that if he has been having to use his rescue inhaler more often than he should, then it is advisable for him to go back on a controller As Flovent HFA has been unavailable at the local pharmacies often lately, will start him instead on Pulmicort Flexhaler 90 mcg 1 inhalation BID - reminded that this is a controller and he should be using this BID everyday for it to be effective He can continue using his Albuterol HFA 1 to 2 inhalations Q 6 hours PRN but if his controller inhaler works well enough, then he should not even feel the need to use his rescue inhaler too often (5) GERD without esophagitis: Code(s): K21.9 - Gastro-esophageal reflux disease without esophagitis Plan: Dietary restrictions reinforced He takes OTC Famotidine 20 mg Q HS PRN with adequate control of his symptoms (6) Asymmetric septal hypertrophy: Code(s): I42.2 - Other hypertrophic cardiomyopathy Plan: Echocardiogram done initially in 2016 to further evaluate some EKG changes at the time revealed (+) septal hypertrophy with grade I LV diastolic dysfunction He was referred to and evaluated by cardiology back then - as patient was completely asymptomatic and has no family Hx of sudden cardiac , no intervention is indicated at the time except for repeat echocardiogram in 2 years for follow up Repeat echo in 2019 revealed normal LV systolic function with mild LV hypertrophy with grade 1 LV diastolic dysfunction, mild left atrial enlargement, mild AR and normal LV systolic pressure with no pericardial effusion Patient remains asymptomatic and no intervention is again indicated at present Consider repeating echocardiogram again in 4 to 5 years for follow up unless patient starts experiencing any cardiac-related symptoms (7) Multiple environmental allergies: Code(s): Z91.09 - Other allergy status, other than to drugs and biological substances Plan: Takes OTC Diphenhydramine 25 mg 2 tablets every 4 to 6 hours as needed and Fluticasone 50 mcg nasal spray QD PRN Patient also carries an EpiPen auto-injector to use when needed - Rx refilled per request He reportedly had some anaphylactic reaction in late April 2022, which he assumed was from something he ate back then (8) Recurrent nonproductive cough: Code(s): R05.8 - Other specified cough Plan: States that his coughing spells seem to start in his throat and thinks that it may be related to his tracheostomy a few years ago He denies any trouble swallowing and denies any sore throat/throat pain He was advised to check back with ENT (Dr. Turk) and see if at least an office laryngoscopy can be done to look into his this He is also advised to go back on OTC Fluticasone 50 mcg nasal spray QD PRN as allergies may also be a possible cause of his recurrent coughing; can also try taking OTC Loratadine 10 mg QD PRN to help with his symptoms (9) Vitamin D deficiency: Code(s): E55.9 - Vitamin D deficiency, unspecified Plan: Continue OTC Vitamin D3 2000 units QD (10) Overweight (BMI 25.0-29.9): Code(s): E66.3 - Overweight Plan: Reinforced diet/exercise as tolerated/lose weight Plan Follow up in 6 months Orders: Orders Complete Blood Count Auto Diff 6 Months D64.9 - Anemia, unspecified Comprehensive [place]. Panel Fast 6 Months E78.00 - Pure hypercholesterolemia, unspecified UA CC w/rflx Micro + Cult 6 Months R30.0 - Dysuria Lipid Panel 6 Months E78.00 - Pure hypercholesterolemia, unspecified TSH reflex Free T4 6 Months E78.00 - Pure hypercholesterolemia, unspecified Vitamin D 25-OH Total 6 Months E55.9 - Vitamin D deficiency, unspecified Medications: New Pulmicort Flexhaler 90 mcg/actuation (budesonide) This has to be used twice a day EVERYDAY for it to be effective 1 inh inhalation BID 30 days 1 ea 5RF NS Refilled epinephrine (EpiPen 2-[place]) 0.3 mg (0.3 mL) IM Q4H PRN 2 ea 0RF anaphylaxis Coding Level of Care Code Est Pt Level 4 (80774) Diagnoses Pure hypercholesterolemia E78.00 Elevated blood pressure reading R03.0 Closed wedge compression fracture of L1 vertebra, sequela S32.010S Encounter type: sequela Fracture type: closed Moderate persistent asthma without complication J45.40 Asthma complication type: uncomplicated Asthma persistence: persistent Asthma severity: moderate GERD without esophagitis K21.9 Asymmetric septal hypertrophy I42.2 Multiple environmental allergies Z91.09 Recurrent nonproductive cough R05.8 Vitamin D deficiency E55.9 Overweight (BMI 25.0-29.9) E66.3
[2023-10-31 09:16] VITALS: BP 134/72; PULSE 61; O2SAT 96; BMI 27.1
== END 2023-10-31 10:05 | disposition home or self-care (01) ==
PROVIDERS: Visit Provider Internal Medicine
DX: E78.00 Pure hypercholesterolemia, unspecified (principal); R03.0 Elevated blood-pressure reading, without diagnosis of hypertension; S32.010S Wedge compression fracture of first lumbar vertebra, sequela; J45.40 Moderate persistent asthma, uncomplicated; K21.9 Gastro-esophageal reflux disease without esophagitis; I42.2 Other hypertrophic cardiomyopathy; Z91.09 Other allergy status, other than to drugs and biological substances; R05.8 Other specified cough; E55.9 Vitamin D deficiency, unspecified; E66.3 Overweight

== ENCOUNTER → 2023-10-31 09:12 | Outpatient (BNVA) | payer OTHER, MEDICARE, SELFPAY | PROVIDERS: Visit Provider Internal Medicine | DX: E78.00 Pure hypercholesterolemia, unspecified (principal); R03.0 Elevated blood-pressure reading, without diagnosis of hypertension; S32.010S Wedge compression fracture of first lumbar vertebra, sequela; J45.40 Moderate persistent asthma, uncomplicated; K21.9 Gastro-esophageal reflux disease without esophagitis; I42.2 Other hypertrophic cardiomyopathy; R05.8 Other specified cough; E55.9 Vitamin D deficiency, unspecified; E66.3 Overweight; Z91.09 Other allergy status, other than to drugs and biological substances | CPT/HCPCS: 96127 ==

== ENCOUNTER 2024-04-30 08:34 | Outpatient (REF) | payer OTHER, MEDICARE, SELFPAY ==
[2024-04-30 10:27] LABS: MANUAL DIFF FLAG NO
[2024-04-30 10:31] LABS: Basophils Absolute Auto 0.1 X10*3/uL (0.0-0.2); Basophils Percent Auto 1.8 % (0-2); Eosinophils Absolute Auto 0.2 X10*3/uL (0.0-0.4); Eosinophils Percent Auto 3.7 % (0-4); Hematocrit 48.3 % (42.0-52.0); Hemoglobin 16.7 g/dl (14.0-18.0); Imm Gran Abs Auto 0.02 X10*3/uL (0.00-0.03); Imm Gran Pct Auto 0.3 % (0.0-0.4); Lymphocytes Absolute Auto 1.3 X10*3/uL (1.2-4.9); Lymphocytes Percent Auto 20.2 % (20-40); Mean Corpuscular HGB Conc 34.6 g/dl (31.0-36.0); Mean Corpuscular Hemoglobin 32.4 pg (27.0-33.0); Mean Corpuscular Volume 93.6 fL (80.0-98.0); Mean Platelet Volume 9.2 fL (9.4-12.4); Monocytes Absolute Auto 0.7 X10*3/uL (0.1-1.2); Monocytes Percent Auto 11.5 % (2-11); Neutrophils Absolute Auto 3.9 x10*3/uL (2.0-8.3); Neutrophils Percent Auto 62.5 % (45-73); Platelet Count 253 X10*3/uL (160-400); Red Blood Count 5.16 X10*6/uL (4.60-5.80); Red Cell Distribution Width 11.7 % (11.0-16.0); White Blood Count 6.2 X10*3/uL (4.8-10.8)
[2024-04-30 12:17] LABS: Alanine Aminotransferase 36 U/L (0-40); Alkaline Phosphatase 65 U/L (39-117); Anion Gap 13 (12-20); Aspartate Amino Transferase 50 U/L (5-37); Bilirubin Total 1.6 mg/dL (0.0-1.0); Blood Urea Nitrogen 8 mg/dL (9-16); Calcium 8.7 mg/dL (8.4-10.2); Carbon Dioxide 26 mmol/L (22-29); Chloride 99 mmol/L (96-108); Cholesterol 230 mg/dL (<200); Estimated Glomerular Filt Rate > 60; Glucose Fasting 86 mg/dL (60-99); HDL Cholesterol 67 mg/dL (>40); LDL Cholesterol Calculated 147 mg/dL (<100); Sodium 134 mmol/L (135-145); Total Protein 7.2 g/dL (6.5-8.0); Triglycerides 82 mg/dL (<150)
[2024-04-30 12:35] LABS: TSH reflex Free T4 1.92 uIU/mL (0.32-4.0); Vitamin D 25-OH Total 19.2 ng/mL (>30)
[2024-04-30 13:49] LABS: Appearance Urine Clear; Color Urine Yellow; Glucose Urine UA Negative (Negative); Leukocyte Esterase Urine Negative (Negative); Nitrite Urine Negative (Negative); Urine Blood Negative (Negative); Urine Ketones 15 mg/dL (Negative); Urine Protein Negative (Neg-Trace)
== END 2024-04-30 08:35 | disposition home or self-care (01) ==
LOC: HO.10HDL 08:34
PROVIDERS: Visit Provider Internal Medicine
DX: R30.0 Dysuria (principal); D64.9 Anemia, unspecified; E78.00 Pure hypercholesterolemia, unspecified; E55.9 Vitamin D deficiency, unspecified
CPT/HCPCS: 36415; 80053; 80061; 81003; 82306; 84443; 85025

== ENCOUNTER 2024-05-01 09:04 | Outpatient (AMB) | payer OTHER, MEDICARE, SELFPAY ==
[2024-05-01 09:07] VITALS: BP 110/84; PULSE 68; O2SAT 98; BMI 27.9
--- NOTE | 2024-05-01 09:07 | A.OFFPC_ITS ---
Vital Signs 05/01/24 09:07 Height 5 ft 9 in Weight 189 lb 2 oz BMI 27.9 BP 110/84 Blood Pressure Location Lt brachial Position Sitting Pulse 68 Pulse Source Pulse Oximeter Pulse Oximetry (%) 98 Oxygen Delivery Method Room Air Intake Visit Reasons: Annual Exam Manager Of Marketing Required: No Accompanied by: Self / Same As Patient Allergies cefdinir Allergy (Unknown, Verified 05/01/24 09:19) diarrhea- c-diff, diarrhea hydrocodone [Vicodin] Allergy (Unknown, Verified 05/01/24 09:19) stomach upset simvastatin Adverse Reaction (Severe, Verified 05/01/24 09:19) rhabdomyolysis; myalgia SEASONAL ALLERGIES Allergy (Mild, Uncoded 05/01/24 09:19) ITCHY EYES; SNEEZING Medication List - Last Reconciled 05/01/24 by Semaj Moeller MD albuterol sulfate 90 mcg/actuation (Ventolin HFA) 2 puffs inhalation Q6H PRN 30 days cholecalciferol (vitamin D3) 50 mcg PO DAILY 90 days epinephrine (EpiPen 2-[place]) 0.3 mg (0.3 mL) IM Q4H PRN ibuprofen 800 mg PO Q8H PRN 30 days Pulmicort Flexhaler 90 mcg/actuation (budesonide) 1 inh inhalation BID 30 days NS Tobacco use date assessed: 05/01/24 Fall risk assessment: 1 Fall in past year Last assessed Fall Risk: 05/01/24 Dental Screening Dental Screen Date: 05/01/24 Did you have a dental visit in the last 12 months?: No Did you have a dental problem in the last 6 months where you did not have access to dental care?: No Was dental information given to patient?: No HPI Annual Exam HPI Details Patient comes in today for his annual physical examination States that he again has a recurrent cough for weeks now - states that he coughs up minimal thick clear to whitish phlegm at times and that his cough is worse at night when he lies down States that he has also been experiencing some left-sided chest wall pains lately that he thinks are from his severe coughing spells - feels the pain more under his left axillary area and states that they feel worse when he is coughing Relates (+) some scratchiness in his throat as well over the past couple of days and feels that he has also (+) postnasal drainage lately He denies any fever, headaches or dizziness Denies any chest pains, no increased SOB but notes that he's had to use his Albuterol inhaler a lot more often lately No nausea/vomiting, no abdominal pain No change in bowel habits noted He denies any acute urinary symptoms Adds that his lower back still feels sore all the time Relates that he slipped on ice and fell on his back a few weeks ago and recalls that he was experiencing increased pain and spasms over his lower back for a while Also recalls that his elbows felt like they were on fire for a couple of weeks following his fall but his elbows feel okay at present Needs a couple of his Rx refilled, including his Ibuprofen and Albuterol inhaler He had his follow up labs done yesterday - to discuss his results [facility] Medical History (Updated 05/01/24 @ 10:37 by Semaj Moeller MD) Vitamin D deficiency Seasonal allergies Wedge compression fracture of L1 vertebra Asymmetric septal hypertrophy Multiple environmental allergies Overweight (BMI 25.0-29.9) GERD without esophagitis Asthma Pure hypercholesterolemia Surgical History History of tracheostomy Hx of colonoscopy No pertinent past surgical history Family History Mother No problems noted. Father No problems noted. 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 Cognitive needs: No Hearing needs: No Vision needs: Yes (Glasses) Questionnaire PHQ-9 Over the last 2 weeks, how often have you been bothered by any of the following problems? 1. Little interest or pleasure in doing things: not at all 2. Feeling down, depressed, or hopeless: not at all 3. Trouble falling or staying asleep, or sleeping too much: not at all 4. Feeling tired or having little energy: not at all 5. Poor appetite or overeating: not at all 6. Feeling bad about yourself - or that you are a failure or have let yourself or your family down: not at all 7. Trouble concentrating on things, such as reading the newspaper or watching television: not at all 8. Moving or speaking so slowly that other people could have noticed. Or the opposite - being so fidgety or restless that you have been moving around a lot more than usual: not at all 9. Thoughts that you would be better off or of hurting yourself in some way: not at all Total score: 0 Depression Screening Interpretation: Negative Depression Screening Done: Yes 82872 - PHQ-9 Billing: Yes Source: Developed by Drs. Juan Manuel Piña, Sandy Gallegos, Vikash Mendoza and colleagues, with an educational johnny from [employer]. Thrive Questionnaire Date Thrive assessed: 05/01/24 I am a: Patient What is your living situation today?: I have a steady place to live Within the past 12 months, did the food you bought not last and you didn't have the money to get more?: I choose not to answer this question Within the past 12 months, did you worry whether your food would run out before you got money to buy more?: I choose not to answer this question Do you have trouble paying for medicines?: No Do you have trouble getting transportation to medical appointments?: No Do you have trouble paying your heating and electricity bill?: No Do you have trouble taking care of your child, family member or friend?: No Do you have trouble with day-to-day activities such as bathing, preparing meals, shopping, managing finances, etc.?: No Are you currently unemployed and looking for a job?: No Are you interested in more education?: No Please select the resources that you would like help with: None Currently or been in a relationship where the following occur: No concerns reported THRIVE Score: 0 AUDIT C Alcohol Use Questionnaire (AUDIT-C) 1. How often do you have a drink containing alcohol?: Never 3. How often do you have six or more drinks on one occasion?: Never Total Score: 0 Score Reviewed/Action Taken: Yes ZONIA-7 AMB Questionnaire ZONIA-7 Date ZONIA - 7 assessed: 05/01/24 Feeling nervous, anxious, or on edge: 0 = Not at all Not being able to stop or control worryin = Not at all Worrying too much about different things: 0 = Not at all Trouble relaxin = Not at all Being so restless that it is hard to sit still: 0 = Not at all Becoming easily annoyed or irritable: 0 = Not at all Feeling afraid as if something awful might happen: 0 = Not at all Total ZONIA-7 score (0-4 normal; 5-9 mild; 10-14 moderate; 15-21 severe): 0 Source: Developed by Drs. Juan Manuel Piña, Sandy Gallegos, Vikash Mendoza and colleagues, with an educational johnny from [employer]. Review of Systems Const Denies chills, Denies fatigue, Denies fever(s), Denies headache(s), Denies malaise and Denies weakness Eyes Denies blurry vision, Denies change in vision, Denies irritation and Denies itchy eyes ENT Denies dysphagia, Denies dizziness, Denies otalgia, Denies headache(s), Denies nasal congestion, Denies neck pain, Denies odynophagia, Reports post nasal drip and Reports sore throat (mostly feels scratchy lately) Card Reports chest pain (left-sided chest wall pains that feel worse when he is coughing a lot), Denies rapid heart rate, Denies irregular heart rhythm, Denies palpitations and Reports dyspnea on exertion (mild) Resp Reports chest congestion, Reports cough (recurrent, worse at night; coughs up thick whitish phlegm at times), Denies hemoptysis, Reports dyspnea on exertion (mild) and Denies wheezing GI Denies abdominal pain, Denies bloating, Denies constipation, Denies dysphagia, Denies heartburn, Denies diarrhea, Denies nausea, Denies odynophagia and Denies vomiting Denies hematuria, Denies difficulty urinating, Denies dysuria, Denies urinary frequency and Denies urinary urgency Musc Reports back pain (over the lower back - chronic), Denies arthralgias, Denies joint swelling, Denies muscle weakness and Denies neck pain Skin/Breast Denies change in pigmentation, Denies lesions, Denies rash and Denies unusual bruising Neuro Denies dizziness, Denies headache(s), Denies paresthesias and Denies weakness Endo Denies fatigue and Denies palpitations Aller/Immun Denies itchy eyes and Denies wheezing Physical exam (Primary Care) Vital Signs: Last Vital Signs Pulse 68 05/01/24 09:07 BP 110/84 05/01/24 09:07 Pulse Ox 98 05/01/24 09:07 Oxygen Delivery Method Room Air 05/01/24 09:07 BMI result Body Mass Index 27.9 Tobacco/Smoking Status: Tobacco use Status Tobacco use date assessed 05/01/24 05/01/24 09:13 Patient Tobacco Use Status Never used Tobacco 05/01/24 09:13 e-Cigarette/Vaping Use Never Used 05/01/24 09:13 PHQ-9: PHQ-9 Score PHQ-9: Total score 0 05/01/24 09:13 Depression Screening Interpretation: Negative Thrive Assessment: Date of Thrive Assessment Date Thrive assessed 05/01/24 05/01/24 09:13 Currently or been in a relationship where the following occur: No concerns reported Const General: no acute distress, alert and awake Orientation/consciousness: patient oriented x3 HENMT Head: Yes normocephalic and Yes atraumatic Ears: external ears normal, TM's normal bilaterally and EAC's normal General nose exam: No nasal discharge present Face and sinus: Yes normal facial exam and Yes sinuses nontender Teeth and gingiva: dentition normal Throat: Yes abnormal tonsil ((+) mild TP congestion bilaterally), Yes posterior oropharynx abnormal (increased erythema) and Yes postnasal drainage Eyes Eyelids: Yes eyelids normal Conjunctivae: conjunctivae normal Pupils: Equal, round and reactive pupils present EOM: EOMs intact bilaterally Neck Neck: Yes supple and No lymphadenopathy Thyroid: Thyroid normal Resp Auscultation: no crackles, no rales, no wheezes and diminished lung sounds (slightly) bilateral Cardio Rate: regular rate Rhythm: regular rhythm Heart sounds: no murmurs GI Palpation (GI): Soft to palpation, nontender and No hepatosplenomegaly present Auscultation: normal bowel sounds General: Yes no CVA tenderness Back/Spine/Pelvis Back: no CVA tenderness Thoracic/Lumbar Spine: paraspinal muscle tenderness bilaterally in the upper lumbar, in the mid lumbar and in the lower lumbar and lumbar spinal tenderness Skin Lesions: no lesions Rashes: no rashes Neuro General: patient oriented x3, moves all extremities, no focal motor deficits and CN's II-XI intact bilaterally Cranial nerves: Yes Equal, round and reactive pupils present Cognition (Neuro): normal cognition Gait exam (Neuro): Normal gait present Extrem General: Yes no clubbing, cyanosis or edema Results Reviewed Results Reviewed: Laboratory Tests 04/25/23 04/30/24 10:05 08:40 WBC 6.2 Hgb 16.7 Hct 48.3 Plt Count 253 Sodium 134 L Potassium 4.0 Creatinine 0.87 Estimated GFR > 60 Fasting Glucose 86 Calcium 8.7 D Total Bilirubin 1.6 H AST 50 H ALT 36 Triglycerides 111 82 Cholesterol 186 230 H LDL Cholesterol, Calc 98 147 H HDL Cholesterol 66 67 25-OH Vitamin D Total 19.2 L TSH 1.92 Ur Specific [place] 1.010 Urine Protein Negative Urine Glucose (UA) Negative Urine Blood Negative Urine Nitrite Negative Ur Leukocyte Esterase Negative Coding Level of Care Code Est Pt Prev Care >65y(35510) Diagnoses Annual physical exam Z00.00 Pure hypercholesterolemia E78.00 Elevated blood pressure reading R03.0 Asymmetric septal hypertrophy I42.2 Closed wedge compression fracture of L1 vertebra, sequela S32.010S Encounter type: sequela Fracture type: closed Moderate persistent asthma without complication J45.40 Asthma severity: moderate Asthma persistence: persistent Asthma complication type: uncomplicated Recurrent nonproductive cough R05.8 Multiple environmental allergies Z91.09 Elevated LFTs R79.89 GERD without esophagitis K21.9 Vitamin D deficiency E55.9 Overweight (BMI 25.0-29.9) E66.3 Additional Codes PHQ-9 - 30971 - PHQ-9 Billing: Yes ([id number]) Assessment & Plan Assessment & Plan (1) Annual physical exam: Code(s): Z00.00 - Encounter for general adult medical examination without abnormal findings Category: Medical Plan: Results of his labs done yesterday reviewed and discussed with patient He is up-to-date with his colon cancer screening and will be due for repeat colonoscopy in a couple of years (2026) (2) Pure hypercholesterolemia: Code(s): E78.00 - Pure hypercholesterolemia, unspecified Category: Medical Plan: Patient is advised that his cholesterol numbers, especially his total and LDL cholesterol levels, have increased significantly from previous Reinforced low cholesterol diet Will start him on Rosuvastatin 5 mg QD - he could not tolerate Simvastatin in the past due to side effects (increased myalgia) Patient is instructed to call MARCOS if he starts experiencing increasing myalgia from Rosuvastatin as well Will have him recheck his labs and fasting lipids in 6 months for follow up (3) Elevated blood pressure reading: Code(s): R03.0 - Elevated blood-pressure reading, without diagnosis of hypertension Category: Medical Plan: Improved - his blood pressure appears normal today Reinforced low sodium diet Patient is reminded to continue monitoring his blood pressure regularly (4) Asymmetric septal hypertrophy: Code(s): I42.2 - Other hypertrophic cardiomyopathy Category: Medical Plan: Echocardiogram done initially in 2015 to further evaluate some EKG changes at the time revealed (+) septal hypertrophy with grade I LV diastolic dysfunction He was referred to and evaluated by cardiology back then - as patient was completely asymptomatic and has no family Hx of sudden cardiac , no intervention is indicated at the time except for repeat echocardiogram in 2 years for follow up Repeat echo in 2019 revealed normal LV systolic function with mild LV hypertrophy with grade 1 LV diastolic dysfunction, mild left atrial enlargement, mild AR and normal LV systolic pressure with no pericardial effusion Patient remains asymptomatic and no intervention is again indicated at present He was advised to consider repeating echocardiogram again in 4 to 5 years for follow up unless patient starts experiencing any cardiac-related symptoms - will consider getting this rechecked when he returns for his follow up visit in 6 months (5) Wedge compression fracture of L1 vertebra: Code(s): S32.010A - Wedge compression fracture of first lumbar vertebra, initial encounter for closed fracture Category: Medical Qualifiers: Encounter type: sequela Fracture type: closed Qualified Code(s): S32.010S - Wedge compression fracture of first lumbar vertebra, sequela Plan: Reinforced activity and weight-lifting restrictions Lumbar spine MRI done on 09/14/2021 revealed (+) acute edematous osteoporotic type compression fracture at L1, with no significant spinal canal narrowing or cord compression noted Follow up lumbar spine x-rays done in May 2023 revealed (+) stable chronic compression deformity of L1 with no acute process He relates suffering a fall on his back a few weeks ago and that is why his lower back has been bothering him lately but he feels that it is now starting to calm down again States that he is still taking Ibuprofen 800 mg TID PRN for his low back pain He has some Skelaxin at home but has not taken it in a while as he states that the Rx knocks him out - he is advised that he can try taking them just at bedtime on an as-needed basis to help calm his low back pain down and allow him to get some sleep Patient recalls that he was seen by neurosurgery a couple of years ago and was recommended kyphoplasty, which he declined at the time He was reportedly also advised back then that physical therapy and core muscle strengthening exercises would best help him at the time Advised patient that we can refer him back to PT on an as-needed basis - states that he will call for referral when needed Follow up with neurosurgery as scheduled or as needed (6) Asthma: Code(s): J45.909 - Unspecified asthma, uncomplicated Category: Medical Qualifiers: Asthma severity: moderate Asthma persistence: persistent Asthma complication type: uncomplicated Qualified Code(s): J45.40 - Moderate persistent asthma, uncomplicated Plan: Patient's asthma appears to be inadequately controlled at present as he has diminished breath sounds bilaterally on exam It is also possible that his recent allergy symptoms are contributing to his asthma flare ups Will go ahead and increase his Pulmicort to 180 mcg 1 inhalation BID; continue Albuterol HFA 1 to 2 inhalations Q 6 hours PRN (7) Recurrent nonproductive cough: Code(s): R05.8 - Other specified cough Category: Medical Plan: This is likely due to asthma exacerbations brought on by his allergies lately but as he has diminished breath sounds on exam today and with his recent complaints of recurrent chest congestion and coughing, will go ahead and start him empirically on Azithromycin QD x 5 days Patient is advised to call if he does not experience any significant improvement of his symptoms over the next few weeks (8) Multiple environmental allergies: Code(s): Z91.09 - Other allergy status, other than to drugs and biological substances Category: Medical Plan: He takes OTC Diphenhydramine 25 mg 2 tablets every 4 to 6 hours as needed and Fluticasone 50 mcg nasal spray QD PRN Patient also carries an EpiPen auto-injector to use when needed, as he reportedly had some anaphylactic reaction back in late April 2022, which he assumed was from something he ate back then (9) Elevated LFTs: Code(s): R79.89 - Other specified abnormal findings of blood chemistry Category: Medical Plan: This is likely related to his weight as well as his elevated cholesterol levels and should improve with weight loss and better control of his lipid profile Will recheck his LFTs in 6 months for follow up and continue to monitor his LFTs regularly (10) GERD without esophagitis: Code(s): K21.9 - Gastro-esophageal reflux disease without esophagitis Category: Medical Plan: Dietary restrictions reinforced He takes OTC Famotidine 20 mg Q HS PRN with adequate control of his symptoms (11) Vitamin D deficiency: Code(s): E55.9 - Vitamin D deficiency, unspecified Category: Medical Plan: Patient is advised that his Vitamin D level is again low on his recent labs He admits that he has not been taking his Vitamin D consistently and will start back on it again - he should be on OTC Vitamin D3 2000 units QD (12) Overweight (BMI 25.0-29.9): Code(s): E66.3 - Overweight Category: Medical Plan: Reinforced diet/exercise as tolerated/lose weight Plan Follow up in 6 months Medications: New azithromycin take 500 mg today (day 1), then 250 mg for 4 days (days 2-5) PO 6 tabs 0RF rosuvastatin 5 mg PO DAILY 30 days 30 tabs 5RF Changed From Pulmicort Flexhaler 90 mcg/actuation (budesonide) This has to be used twice a day EVERYDAY for it to be effective 1 inh inhalation BID 30 days 1 ea 5RF NS To budesonide 180 mcg/actuation This has to be used twice a day EVERYDAY for it to be effective 1 inh inhalation BID 30 days 1 ea 5RF From ibuprofen Take with food 800 mg PO Q8H 30 days PRN 90 tabs 3RF pain To ibuprofen Take with food only as needed for pain 800 mg PO Q8H 30 days PRN 90 tabs 3RF pain Refilled albuterol sulfate 90 mcg/actuation (Ventolin HFA) 2 puffs inhalation Q6H 30 days PRN 8.5 grams 5RF shortness of breath or wheezing
--- OUTSIDE RECORDS SUMMARY | 2024-05-01 09:39 | XMS_ITS | Patient Health Record ---
Author Organization [facility] Address [address] [place] [address] Care Team Providers Care Product Development Worker Name Role Phone Sajan GONSALEZ, [place] Primary Care Provider Juan Manuel Charles Unavailable [phone] Allergies Allergen (clinical drug ingredient) Drug/Non Drug Allergy documented on EMR Reaction Allergy Type Onset Date Status seasonal (uncoded) Unknown Allergy A ctive Reason For Referral No Information Medications Medication SIG (Take, Route, Fr equency, Duration) Notes Start Date End Date Status Ibuprofen 800 MG 1 tablet with food o r milk as needed Orally prn/ for back Acti ve Flonase 50 MCG/ACT 1 spray in each nost ril Nasally Once a day Active Skelaxin 800 MG 1 tablet Orally prn/back pain Active Albuterol prn Active Simvastatin 20 MG 1 tablet in the even ing Orally Once a day Active Famotidine 40 MG 1 tablet at bedtime Orally Once a day Active Immunizations Vaccine Route Administration Date Status Comme nts Influenza Unknown 09/10/2021 Refused Problems Problem Type SNOMED Code ICD Code Onset Dates Problem Status W/U Status Risk Notes Problem [id number] Encounter for screening for malignant neoplasm of colon (Z12.11) Active confirmed Problem 525460555 Hx of adenomatou s colonic polyps (Z86.010) Active confirmed Problem [id number] Pre-procedural examination (Z01.818) Active confirmed Problem Diverticulosis of sigmoid colon (122782777) Diverticulosis of sigmoid colon (K57.30) Active confirmed Problem Gastroesophageal reflux disease (787294852) GERD without esophagitis (K21.9) Active confirmed Plan Of Treatment Pending Test Test Name Order Date Pathology 12/30/2021 Future Test Test Name Order Date COLONOSCOPY 03/10/2012 COLONOSCOPY 07/20/2017 COLONOSCOPY 09/10/2021 Insurance Providers Payer Name Payer Address Payer Phone Subscriber Number Group Number Insured Name Patient Relationship to Insured Coverage Start Date Coverage End Date [facility] [address] [facility] [place] [id number] [id number] ALYSSA TURNER Self - patient is the insured Medical (General) History Medical History History ICD Code GERD-EGD in 02/2007-small HH, no esophagi tis Screening colonoscopy in 2007-1 small tu bular adenoma removed in 02/2007 Asthma Hyperlipidemia Denies DC,DM,CVA,renal disease Negative colonoscopy in 04/2012 except fo r diverticulosis C.diff from antibiotics in approx 2014 Compression fracture in L1 -fell off lad manjit 03/2021 Colonoscopy 07/2017 with a tubular adenom a removed-difficult procedure Surgical History Surgery Date(Month/Year) Emergency Tracheostomy 8-due to an allergic reaction--Dr. Wallace---removed in May,
== END 2024-05-01 09:39 | disposition home or self-care (01) ==
LOC: HO.HMCH 09:05
PROVIDERS: Visit Provider Internal Medicine
DX: Z00.00 Encounter for general adult medical examination without abnormal findings (principal); E78.00 Pure hypercholesterolemia, unspecified; R03.0 Elevated blood-pressure reading, without diagnosis of hypertension; I42.2 Other hypertrophic cardiomyopathy; S32.010S Wedge compression fracture of first lumbar vertebra, sequela; J45.40 Moderate persistent asthma, uncomplicated; R05.8 Other specified cough; Z91.09 Other allergy status, other than to drugs and biological substances; R79.89 Other specified abnormal findings of blood chemistry; K21.9 Gastro-esophageal reflux disease without esophagitis; E55.9 Vitamin D deficiency, unspecified; E66.3 Overweight

== ENCOUNTER → 2024-05-01 09:04 | Outpatient (BNVA) | payer OTHER, MEDICARE, SELFPAY | PROVIDERS: Visit Provider Internal Medicine | DX: Z00.00 Encounter for general adult medical examination without abnormal findings (principal); E78.00 Pure hypercholesterolemia, unspecified; R03.0 Elevated blood-pressure reading, without diagnosis of hypertension; I42.2 Other hypertrophic cardiomyopathy; S32.010S Wedge compression fracture of first lumbar vertebra, sequela; J45.40 Moderate persistent asthma, uncomplicated; R05.8 Other specified cough; R79.89 Other specified abnormal findings of blood chemistry; K21.9 Gastro-esophageal reflux disease without esophagitis; E55.9 Vitamin D deficiency, unspecified; E66.3 Overweight; Z68.27 Body mass index [BMI] 27.0-27.9, adult; Z91.09 Other allergy status, other than to drugs and biological substances | CPT/HCPCS: 96127 ==

== ENCOUNTER 2024-10-01 10:18 | Outpatient (AMB) | payer OTHER, MEDICARE, SELFPAY ==
--- OUTSIDE RECORDS SUMMARY | 2024-10-01 11:20 | XMS_ITS | Patient Health Record ---
Author Organization [facility] Address [address] [place] [address] Care Team Providers Care Hvac/R Service Technician Name Role Phone Sajan GONSALEZ, [place] Primary Care Provider Juan Manuel Charles Unavailable [phone] Allergies Allergen (clinical drug ingredient) Drug/Non Drug [...] Problem Status W/U Status Risk Notes Problem 429323663 Encounter for screening for malignant neoplasm of colon (Z12.11) Active confirmed Problem 634202413 Hx of adenomatou s colonic polyps (Z86.010) Active confirmed Problem 652435928490360 Pre-procedural examination (Z01.818) Active confirmed Problem Diverticulosis of sigmoid colon (353061746) Diverticulosis of sigmoid colon (K57.30) Active confirmed Problem Gastroesophageal reflux disease (178636744) GERD without esophagitis (K21.9) Active confirmed Plan Of Treatment Pending Test Test Name Order Date Pathology 12/30/2021 Future Test Test Name Order Date COLONOSCOPY 03/10/2012 COLONOSCOPY 07/20/2017 COLONOSCOPY 09/10/2021 Insurance Providers Payer Name Payer Address Payer Phone Subscriber Number Group Number Insured Name Patient Relationship to Insured Coverage Start Date Coverage End Date [facility] [address] [facility] [place] [phone] [id number] ALYSSA TURNER Self - patient is the insured Medical (General) History Medical History History ICD Code GERD-EGD in 02/2007-small HH, no esophagi tis Screening colonoscopy in 2007-1 small tu bular adenoma removed in 02/2007 Asthma Hyperlipidemia Denies [place],DM,CVA,renal disease Negative colonoscopy in 04/2012 except fo r diverticulosis C.diff from antibiotics in approx 2014 Compression fracture in L1 -fell off lad manjit 03/2021 Colonoscopy 07/2017 with a tubular adenom a removed-difficult procedure Surgical History Surgery Date(Month/Year) Emergency Tracheostomy 8-due to an allergic reaction--Dr. Wallace---removed in May,
== END 2024-10-01 10:24 | disposition home or self-care (01) ==
LOC: HO.HMGAL 10:18
PROVIDERS: PCP Internal Medicine; Visit Provider Registered Nurse Emergency
DX: J30.89 Other allergic rhinitis (principal)
CPT/HCPCS: 95117; 95165

== ENCOUNTER 2024-10-08 09:52 | Outpatient (AMB) | payer OTHER, MEDICARE, SELFPAY ==
--- OUTSIDE RECORDS SUMMARY | 2024-10-08 10:47 | XMS_ITS | Patient Health Record ---
Author Organization [facility] Address [address] [place] [address] Care Team Providers Care Crisis Clinician Name Role Phone Sajan GONSALEZ, [place] Primary Care Provider Juan Manuel Charles Unavailable [phone] Allergies Allergen (clinical drug ingredient) Drug/Non Drug [...] Problem Status W/U Status Risk Notes Problem [id number] Encounter for screening for malignant neoplasm of colon (Z12.11) Active confirmed Problem 588741303 Hx of adenomatou s colonic polyps (Z86.010) Active confirmed Problem 150069307310960 Pre-procedural examination (Z01.818) Active confirmed Problem Diverticulosis of sigmoid colon (636776005) Diverticulosis of sigmoid colon (K57.30) Active confirmed Problem Gastroesophageal reflux disease (935310337) GERD without esophagitis (K21.9) Active confirmed Plan Of Treatment Pending Test Test Name Order Date Pathology 12/30/2021 Future Test Test Name Order Date COLONOSCOPY 03/10/2012 COLONOSCOPY 07/20/2017 COLONOSCOPY 09/10/2021 Insurance Providers Payer Name Payer Address Payer Phone Subscriber Number Group Number Insured Name Patient Relationship to Insured Coverage Start Date Coverage End Date [facility] [address] [facility] [place] [phone] [id number] ALYSSA TURNER Self - patient is the insured Medical (General) History Medical History History ICD Code GERD-EGD in 02/2007-small HH, no esophagi tis Screening colonoscopy in 2007-1 small tu bular adenoma removed in 02/2007 Asthma Hyperlipidemia Denies [place],DM,CVA,renal disease Negative colonoscopy in 04/2012 except fo r diverticulosis C.diff from antibiotics in approx 2014 Compression fracture in L1 -fell off lad manjit 03/2021 Colonoscopy 07/2017 with a tubular adenom a removed-difficult procedure Surgical History Surgery Date(Month/Year) Emergency Tracheostomy 8-due to an allergic reaction--Dr. Wallace---removed in May,
== END 2024-10-08 13:13 | disposition home or self-care (01) ==
LOC: HO.HMGAL 09:52
PROVIDERS: PCP Internal Medicine; Visit Provider Registered Nurse Emergency
DX: J30.89 Other allergic rhinitis (principal)
CPT/HCPCS: 95117; 95165

== ENCOUNTER 2024-10-17 10:10 | Outpatient (AMB) | payer OTHER, MEDICARE, SELFPAY ==
--- OUTSIDE RECORDS SUMMARY | 2024-10-17 11:38 | XMS_ITS | Patient Health Record ---
Author Organization [facility] Address [address] [place] [address] Care Team Providers Care Middleware Engineer Name Role Phone Sajan GONSALEZ, [place] Primary Care Provider Juan Manuel Charles Unavailable [phone] Allergies Allergen (clinical drug ingredient) Drug/Non Drug [...] Problem Status W/U Status Risk Notes Problem 220010767 Encounter for screening for malignant neoplasm of colon (Z12.11) Active confirmed Problem 065153896 Hx of adenomatou s colonic polyps (Z86.010) Active confirmed Problem 700889043101183 Pre-procedural examination (Z01.818) Active confirmed Problem Diverticulosis of sigmoid colon (602554680) Diverticulosis of sigmoid colon (K57.30) Active confirmed Problem Gastroesophageal reflux disease (308369015) GERD without esophagitis (K21.9) Active confirmed Plan Of Treatment Pending Test Test Name Order Date Pathology 12/30/2021 Future Test Test Name Order Date COLONOSCOPY 03/10/2012 COLONOSCOPY 07/20/2017 COLONOSCOPY 09/10/2021 Insurance Providers Payer Name Payer Address Payer Phone Subscriber Number Group Number Insured Name Patient Relationship to Insured Coverage Start Date Coverage End Date [facility] [address] [facility] [place] [phone] [id number] ALYSSA TURNER Self - patient is the insured Medical (General) History Medical History History ICD Code GERD-EGD in 02/2007-small HH, no esophagi tis Screening colonoscopy in 2007-1 small tu bular adenoma removed in 02/2007 Asthma Hyperlipidemia Denies [place],DM,CVA,renal disease Negative colonoscopy in 04/2012 except fo r diverticulosis C.diff from antibiotics in approx 2014 Compression fracture in L1 -fell off lad manjit 03/2021 Colonoscopy 07/2017 with a tubular adenom a removed-difficult procedure Surgical History Surgery Date(Month/Year) Emergency Tracheostomy 8-due to an allergic reaction--Dr. Wallace---removed in May,
== END 2024-10-17 10:24 | disposition home or self-care (01) ==
LOC: HO.HMGAL 10:10
PROVIDERS: PCP Internal Medicine; Visit Provider Registered Nurse Emergency
DX: J30.89 Other allergic rhinitis (principal)
CPT/HCPCS: 95117; 95165

== ENCOUNTER 2024-10-22 10:32 | Outpatient (AMB) | payer OTHER, MEDICARE, SELFPAY ==
--- OUTSIDE RECORDS SUMMARY | 2024-10-22 12:41 | XMS_ITS | Patient Health Record ---
Author Organization [facility] Address [address] [place] [address] Care Team Providers Care Devulcanizer Tender Name Role Phone Sajan GONSALEZ, [place] Primary Care Provider Juan Manuel Charles Unavailable [phone] Allergies Allergen (clinical drug ingredient) Drug/Non Drug [...] Problem Status W/U Status Risk Notes Problem 965520000 Encounter for screening for malignant neoplasm of colon (Z12.11) Active confirmed Problem 412617330 Hx of adenomatou s colonic polyps (Z86.010) Active confirmed Problem 770167156412477 Pre-procedural examination (Z01.818) Active confirmed Problem Diverticulosis of sigmoid colon (245773466) Diverticulosis of sigmoid colon (K57.30) Active confirmed Problem Gastroesophageal reflux disease (519810162) GERD without esophagitis (K21.9) Active confirmed Plan Of Treatment Pending Test Test Name Order Date Pathology 12/30/2021 Future Test Test Name Order Date COLONOSCOPY 03/10/2012 COLONOSCOPY 07/20/2017 COLONOSCOPY 09/10/2021 Insurance Providers Payer Name Payer Address Payer Phone Subscriber Number Group Number Insured Name Patient Relationship to Insured Coverage Start Date Coverage End Date [facility] [address] [facility] [place] [phone] [id number] ALYSSA TURNER Self - patient is the insured Medical (General) History Medical History History ICD Code GERD-EGD in 02/2007-small HH, no esophagi tis Screening colonoscopy in 2007-1 small tu bular adenoma removed in 02/2007 Asthma Hyperlipidemia Denies [place],DM,CVA,renal disease Negative colonoscopy in 04/2012 except fo r diverticulosis C.diff from antibiotics in approx 2014 Compression fracture in L1 -fell off lad manjit 03/2021 Colonoscopy 07/2017 with a tubular adenom a removed-difficult procedure Surgical History Surgery Date(Month/Year) Emergency Tracheostomy 8-due to an allergic reaction--Dr. Wallace---removed in May,
== END 2024-10-22 10:54 | disposition home or self-care (01) ==
LOC: HO.HMGAL 10:32
PROVIDERS: PCP Internal Medicine; Visit Provider Registered Nurse Emergency
DX: J30.89 Other allergic rhinitis (principal)
CPT/HCPCS: 95117; 95165

== ENCOUNTER 2024-10-29 10:19 | Outpatient (AMB) | payer OTHER, MEDICARE, SELFPAY ==
--- OUTSIDE RECORDS SUMMARY | 2024-10-29 13:05 | XMS_ITS | Patient Health Record ---
Author Organization [facility] Address [address] [place] [address] Care Team Providers Care Vocational Education Professional Name Role Phone Sajan GONSALEZ, [place] Primary Care Provider Juan Manuel Charles Unavailable [phone] Allergies Allergen (clinical drug ingredient) Drug/Non Drug [...] Problem Status W/U Status Risk Notes Problem 007895081 Encounter for screening for malignant neoplasm of colon (Z12.11) Active confirmed Problem 989928988 Hx of adenomatou s colonic polyps (Z86.010) Active confirmed Problem 588826482989373 Pre-procedural examination (Z01.818) Active confirmed Problem Diverticulosis of sigmoid colon (824055734) Diverticulosis of sigmoid colon (K57.30) Active confirmed Problem Gastroesophageal reflux disease (992201157) GERD without esophagitis (K21.9) Active confirmed Plan Of Treatment Pending Test Test Name Order Date Pathology 12/30/2021 Future Test Test Name Order Date COLONOSCOPY 03/10/2012 COLONOSCOPY 07/20/2017 COLONOSCOPY 09/10/2021 Insurance Providers Payer Name Payer Address Payer Phone Subscriber Number Group Number Insured Name Patient Relationship to Insured Coverage Start Date Coverage End Date [facility] [address] [facility] [place] [phone] [id number] ALYSSA TURNER Self - patient is the insured Medical (General) History Medical History History ICD Code GERD-EGD in 02/2007-small HH, no esophagi tis Screening colonoscopy in 2007-1 small tu bular adenoma removed in 02/2007 Asthma Hyperlipidemia Denies [place],DM,CVA,renal disease Negative colonoscopy in 04/2012 except fo r diverticulosis C.diff from antibiotics in approx 2014 Compression fracture in L1 -fell off lad manjit 03/2021 Colonoscopy 07/2017 with a tubular adenom a removed-difficult procedure Surgical History Surgery Date(Month/Year) Emergency Tracheostomy 8-due to an allergic reaction--Dr. Wallace---removed in May,
== END 2024-10-29 10:28 | disposition home or self-care (01) ==
LOC: HO.HMGAL 10:19
PROVIDERS: PCP Internal Medicine; Visit Provider Registered Nurse Emergency
DX: J30.89 Other allergic rhinitis (principal)
CPT/HCPCS: 95117; 95165

== ENCOUNTER 2024-11-01 09:24 | Outpatient (AMB) | payer OTHER, MEDICARE, SELFPAY ==
[2024-11-01 09:28] VITALS: BP 122/78; PULSE 51; O2SAT 98; BMI 27.2
--- NOTE | 2024-11-01 09:28 | MHC.PC.OV ---
Vital Signs 11/01/24 09:28 Height 5 ft 9 in Weight 184 lb 6 oz BMI 27.2 BP 122/78 Blood Pressure Location Lt brachial Position Sitting Pulse 51 Pulse Source Pulse Oximeter Pulse Oximetry (%) 98 Oxygen Delivery Method Room Air Intake Visit Reasons: hyperlipidemia, asthma, lumbar compression Fx Cupola Hoist Operator Required: No Accompanied by: Self / Same As Patient Allergies cefdinir Allergy (Unknown, Verified 11/01/24 10:08) diarrhea- c-diff, diarrhea hydrocodone (Vicodin) Allergy (Unknown, Verified 11/01/24 10:08) stomach upset simvastatin Adverse Reaction (Severe, Verified 11/01/24 10:08) rhabdomyolysis; myalgia SEASONAL ALLERGIES Allergy (Mild, Uncoded 11/01/24 10:08) ITCHY EYES; SNEEZING Medication List - Last Reconciled 11/01/24 by Semaj Moeller MD albuterol sulfate 90 mcg/actuation (Ventolin HFA) 2 puffs inhalation Q6H PRN 30 days budesonide 180 mcg/actuation 1 inh inhalation BID 30 days cholecalciferol (vitamin D3) 50 mcg PO DAILY 90 days epinephrine (EpiPen 2-[place]) 0.3 mg (0.3 mL) IM Q4H PRN ibuprofen 800 mg PO Q8H PRN 30 days rosuvastatin 5 mg PO DAILY 30 days Tobacco use date assessed: 11/01/24 Fall risk assessment: No Falls in past year Last assessed Fall Risk: 11/01/24 Dental Screening Dental Screen Date: 11/01/24 Did you have a dental visit in the last 12 months?: Yes Did you have a dental problem in the last 6 months where you did not have access to dental care?: No Was dental information given to patient?: Patient has dentist HPI hyperlipidemia, asthma, lumbar compression Fx HPI Details Patient comes in today for his follow up visit States that he feels okay He denies any headaches or dizziness Denies any chest pains, no increased SOB No nausea/vomiting, no abdominal pain No change in bowel habits noted He admits that he has not yet started taking the cholesterol Rx (Rosuvastatin) that he was prescribed months ago - states that this is mostly due to his procreastinating than anything else and will start taking the medication tonight Adds that he has been breaking out in scattered hypopigmented patches of skin on his frontal scalp area and on his forehead as well as over his abdomen and legs for a while now States that these lesions do not itch or hurt but he is often being teased about them (especially the ones on his head and forehead by his coworkers) and he would like to get these checked out further [facility] Medical History (Updated 11/01/24 @ 10:11 by Semaj Moeller MD) Vitamin D deficiency Seasonal allergies Wedge compression fracture of L1 vertebra Asymmetric septal hypertrophy Multiple environmental allergies Overweight (BMI 25.0-29.9) GERD without esophagitis Asthma Pure hypercholesterolemia Surgical History History of tracheostomy Hx of colonoscopy No pertinent past surgical history Family History (Reviewed 11/01/24 @ 09: by GLENIS Collier) Mother No problems noted. Father No problems noted. 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 Cognitive needs: No Hearing needs: No Vision needs: Yes (Glasses) Questionnaire PHQ-9 Over the last 2 weeks, how often have you been bothered by any of the following problems? Depression Screening Interpretation: Negative Depression Screening Done: Yes Source: Developed by Drs. Juan Manuel Piña, Sandy Gallegos, Vikash Mendoza and colleagues, with an educational johnny from [employer]. Thrive Questionnaire Date Thrive assessed: 05/01/24 I am a: Patient What is your living situation today?: I have a steady place to live Within the past 12 months, did the food you bought not last and you didn't have the money to get more?: I choose not to answer this question Within the past 12 months, did you worry whether your food would run out before you got money to buy more?: I choose not to answer this question Do you have trouble paying for medicines?: No Do you have trouble getting transportation to medical appointments?: No Do you have trouble paying your heating and electricity bill?: No Do you have trouble taking care of your child, family member or friend?: No Do you have trouble with day-to-day activities such as bathing, preparing meals, shopping, managing finances, etc.?: No Are you currently unemployed and looking for a job?: No Are you interested in more education?: No Please select the resources that you would like help with: None Currently or been in a relationship where the following occur: No concerns reported THRIVE Score: 0 AUDIT C Alcohol Use Questionnaire (AUDIT-C) 1. How often do you have a drink containing alcohol?: Monthly or less 2. How many drinks containing alcohol do you have on a typical day when you are drinking?: 3 or 4 3. How often do you have six or more drinks on one occasion?: Monthly Total Score: 4 Score Reviewed/Action Taken: Yes ZONIA-7 AMB Questionnaire ZONIA-7 Date ZONIA - 7 assessed: 05/01/24 Source: Developed by Drs. Juan Manuel Piña, Sandy Gallegos, Vikash Mendoza and colleagues, with an educational johnny from [employer]. Review of Systems Const Denies chills, Denies fatigue, Denies fever(s) and Denies headache(s) ENT Denies dysphagia, Denies dizziness, Denies otalgia, Denies headache(s), Denies neck pain, Denies odynophagia and Denies sore throat Card Denies chest pain, Denies rapid heart rate, Denies irregular heart rhythm, Denies palpitations and Reports dyspnea on exertion (mild) Resp Denies chest congestion, Denies cough, Reports dyspnea on exertion (mild) and Denies wheezing GI Denies abdominal pain, Denies constipation, Denies dysphagia, Denies heartburn, Denies diarrhea, Denies nausea, Denies odynophagia and Denies vomiting Denies difficulty urinating, Denies dysuria, Denies nocturia and Denies urinary frequency Musc Reports back pain (over the lower back - chronic), Denies arthralgias and Denies neck pain Skin/Breast Details: (+) scattered hypopigmented patches on his head and forehead, abdomen and legs Denies pruritus and Denies rash Neuro Denies dizziness, Denies headache(s) and Denies paresthesias Endo Denies fatigue and Denies palpitations Aller/Immun Denies wheezing Physical exam (Primary Care) Vital Signs: Last Vital Signs Pulse 51 11/01/24 09:28 BP 122/78 11/01/24 09:28 Pulse Ox 98 11/01/24 09:28 Oxygen Delivery Method Room Air 11/01/24 09:28 BMI result Body Mass Index 27.2 Tobacco/Smoking Status: Tobacco use Status Tobacco use date assessed 11/01/24 11/01/24 09:32 Patient Tobacco Use Status Never used Tobacco 11/01/24 09:32 e-Cigarette/Vaping Use Never Used 11/01/24 09:32 Depression Screening Interpretation: Negative Thrive Assessment: Date of Thrive Assessment Date Thrive assessed 05/01/24 11/01/24 09:32 Currently or been in a relationship where the following occur: No concerns reported Const General: no acute distress and alert HENMT Ears: TM's normal bilaterally and EAC's normal Throat: Yes posterior oropharynx normal and Yes tonsils normal Neck Neck: Yes supple and No lymphadenopathy Thyroid: Thyroid normal Resp Auscultation: no crackles, no rales and diminished lung sounds (slightly) bilateral Cardio Rate: regular rate Rhythm: regular rhythm Heart sounds: no murmurs GI Palpation (GI): Soft to palpation and nontender Auscultation: normal bowel sounds General: Yes no CVA tenderness Back/Spine/Pelvis Back: no CVA tenderness Thoracic/Lumbar Spine: paraspinal muscle tenderness bilaterally in the upper lumbar, in the mid lumbar and in the lower lumbar and lumbar spinal tenderness Skin Other: (+) patchy hypopigmented skin lesions over his frontal scalp and adjacent areas of the forehead, as well as over his abdomen (epigastric) and over both lower legs Extrem General: Yes no clubbing, cyanosis or edema Coding Level of Care Code Est Pt Level 4 (55247) Diagnoses Pure hypercholesterolemia E78.00 Elevated blood pressure reading R03.0 Asymmetric septal hypertrophy I42.2 Closed wedge compression fracture of L1 vertebra, sequela S32.010S Encounter type: sequela Fracture type: closed Moderate persistent asthma without complication J45.40 Asthma complication type: uncomplicated Asthma persistence: persistent Asthma severity: moderate Multiple environmental allergies Z91.09 Elevated LFTs R79.89 GERD without esophagitis K21.9 Vitamin D deficiency E55.9 Hypopigmented skin lesion L81.9 Overweight (BMI 25.0-29.9) E66.3 Assessment & Plan Assessment & Plan (1) Pure hypercholesterolemia: Code(s): E78.00 - Pure hypercholesterolemia, unspecified Category: Medical Plan: Patient is advised again that his cholesterol numbers, especially his total and LDL cholesterol levels, have increased significantly from previous on his most recent labs Reinforced low cholesterol diet He was started on Rosuvastatin 5 mg QD (he could not tolerate Simvastatin in the past due to side effects of increased myalgia) but patient has not yet started taking his Rx - states that he will start taking it tonight Patient is again instructed to call MARCOS if he starts experiencing increasing myalgia from Rosuvastatin as well Will have him recheck his labs and fasting lipids in 6 months for follow up (2) Elevated blood pressure reading: Code(s): R03.0 - Elevated blood-pressure reading, without diagnosis of hypertension Category: Medical Plan: Improved - his blood pressure still appears normal today Reinforced low sodium diet Patient is reminded to continue monitoring his blood pressure regularly (3) Asymmetric septal hypertrophy: Code(s): I42.2 - Other hypertrophic cardiomyopathy Category: Medical Plan: Echocardiogram done initially in 2016 to further evaluate some EKG changes at the time revealed (+) septal hypertrophy with grade I LV diastolic dysfunction He was referred to and evaluated by cardiology back then - as patient was completely asymptomatic and has no family Hx of sudden cardiac , no intervention is indicated at the time except for repeat echocardiogram in 2 years for follow up Repeat echo in 2019 revealed normal LV systolic function with mild LV hypertrophy with grade 1 LV diastolic dysfunction, mild left atrial enlargement, mild AR and normal LV systolic pressure with no pericardial effusion Patient remains asymptomatic and no intervention is again indicated at present He was advised to consider repeating echocardiogram again in 4 to 5 years for follow up unless patient starts experiencing any cardiac-related symptoms - will consider getting this rechecked when he returns for his next appointment in 6 months (4) Wedge compression fracture of L1 vertebra: Code(s): S32.010A - Wedge compression fracture of first lumbar vertebra, initial encounter for closed fracture Category: Medical Qualifiers: Encounter type: sequela Fracture type: closed Qualified Code(s): S32.010S - Wedge compression fracture of first lumbar vertebra, sequela Plan: Reinforced activity and weight-lifting restrictions Lumbar spine MRI done on 09/14/2021 revealed (+) acute edematous osteoporotic type compression fracture at L1, with no significant spinal canal narrowing or cord compression noted Follow up lumbar spine x-rays done in May 2023 revealed (+) stable chronic compression deformity of L1 with no acute process He relates suffering a fall on his back a few weeks ago and that is why his lower back has been bothering him lately but he feels that it is now starting to calm down again States that he is still taking Ibuprofen 800 mg TID PRN for his low back pain He has some Skelaxin at home but has not taken it in a while as he states that the Rx knocks him out - he is advised that he can try taking them just at bedtime on an as-needed basis to help calm his low back pain down and allow him to get some sleep Patient recalls that he was seen by neurosurgery a couple of years ago and was recommended kyphoplasty, which he declined at the time He was reportedly also advised back then that physical therapy and core muscle strengthening exercises would best help him at the time Advised patient that we can refer him back to PT on an as-needed basis - states that he will call for referral when needed Follow up with neurosurgery as scheduled or as needed (5) Asthma: Code(s): J45.909 - Unspecified asthma, uncomplicated Category: Medical Qualifiers: Asthma complication type: uncomplicated Asthma persistence: persistent Asthma severity: moderate Qualified Code(s): J45.40 - Moderate persistent asthma, uncomplicated Plan: Controlled Continue Pulmicort 180 mcg 1 inhalation BID and Albuterol HFA 1 to 2 inhalations Q 6 hours PRN (6) Multiple environmental allergies: Code(s): Z91.09 - Other allergy status, other than to drugs and biological substances Category: Medical Plan: He takes OTC Diphenhydramine 25 mg 2 tablets every 4 to 6 hours as needed and Fluticasone 50 mcg nasal spray QD PRN Patient also carries an EpiPen auto-injector to use when needed, as he reportedly had some anaphylactic reaction back in late April 2022, which he assumed was from something he ate back then (7) Elevated LFTs: Code(s): R79.89 - Other specified abnormal findings of blood chemistry Category: Medical Plan: This is likely related to his weight as well as his elevated cholesterol levels and should improve with weight loss and better control of his lipid profile Will recheck his LFTs in 6 months for follow up and continue to monitor his LFTs regularly (8) GERD without esophagitis: Code(s): K21.9 - Gastro-esophageal reflux disease without esophagitis Category: Medical Plan: Dietary restrictions reinforced He takes OTC Famotidine 20 mg Q HS PRN with adequate control of his symptoms (9) Vitamin D deficiency: Code(s): E55.9 - Vitamin D deficiency, unspecified Category: Medical Plan: Continue OTC Vitamin D3 2000 units QD (10) Hypopigmented skin lesion: Code(s): L81.9 - Disorder of pigmentation, unspecified Category: Medical Plan: (?) vitiligo Will refer him to dermatology for further evaluation and management (11) Overweight (BMI 25.0-29.9): Code(s): E66.3 - Overweight Category: Medical Plan: Reinforced diet/exercise as tolerated/lose weight Plan To return in 6 months for his next annual physical examination Orders: Orders Comprehensive [place]. Panel Fast 6 Months E78.00 - Pure hypercholesterolemia, unspecified, Z00.00 - Encounter for general adult medical examination without abnormal findings Lipid Panel 6 Months E78.00 - Pure hypercholesterolemia, unspecified, Z00.00 - Encounter for general adult medical examination without abnormal findings TSH reflex Free T4 6 Months E78.00 - Pure hypercholesterolemia, unspecified, Z00.00 - Encounter for general adult medical examination without abnormal findings UA CC w/rflx Micro + Cult 6 Months R30.0 - Dysuria, Z00.00 - Encounter for general adult medical examination without abnormal findings Vitamin D 25-OH Total 6 Months E55.9 - Vitamin D deficiency, unspecified, Z00.00 - Encounter for general adult medical examination without abnormal findings Prostate Specific Antigen 6 Months N40.0 - Benign prostatic hyperplasia without lower urinary tract symptoms, Z00.00 - Encounter for general adult medical examination without abnormal findings Complete Blood Count Auto Diff 6 Months D64.9 - Anemia, unspecified, Z00.00 - Encounter for general adult medical examination without abnormal findings Referrals Dermatology Referral L81.9 - Disorder of pigmentation, unspecified
--- OUTSIDE RECORDS SUMMARY | 2024-11-01 11:01 | XMS_ITS | Patient Health Record ---
Author Organization [facility] Address [address] [place] [address] Care Team Providers Care Produce Laborer Name Role Phone Sajan GONSALEZ, [place] Primary Care Provider Juan Manuel Charles Unavailable [phone] Allergies Allergen (clinical drug ingredient) Drug/Non Drug [...] Problem Status W/U Status Risk Notes Problem [id number] Encounter for screening for malignant neoplasm of colon (Z12.11) Active confirmed Problem 276947138 Hx of adenomatou s colonic polyps (Z86.010) Active confirmed Problem 704942268632233 Pre-procedural examination (Z01.818) Active confirmed Problem Diverticulosis of sigmoid colon (428092739) Diverticulosis of sigmoid colon (K57.30) Active confirmed Problem Gastroesophageal reflux disease (336132511) GERD without esophagitis (K21.9) Active confirmed Plan Of Treatment Pending Test Test Name Order Date Pathology 12/30/2021 Future Test Test Name Order Date COLONOSCOPY 03/10/2012 COLONOSCOPY 07/20/2017 COLONOSCOPY 09/10/2021 Insurance Providers Payer Name Payer Address Payer Phone Subscriber Number Group Number Insured Name Patient Relationship to Insured Coverage Start Date Coverage End Date [facility] [address] [facility] [place] [phone] [id number] ALYSSA TURNER Self - patient is the insured Medical (General) History Medical History History ICD Code GERD-EGD in 02/2007-small HH, no esophagi tis Screening colonoscopy in 2007-1 small tu bular adenoma removed in 02/2007 Asthma Hyperlipidemia Denies [place],DM,CVA,renal disease Negative colonoscopy in 04/2012 except fo r diverticulosis C.diff from antibiotics in approx 2014 Compression fracture in L1 -fell off lad manjit 03/2021 Colonoscopy 07/2017 with a tubular adenom a removed-difficult procedure Surgical History Surgery Date(Month/Year) Emergency Tracheostomy 8-due to an allergic reaction--Dr. Wallace---removed in May,
== END 2024-11-01 10:14 | disposition home or self-care (01) ==
LOC: HO.HMCH 09:25
PROVIDERS: PCP Internal Medicine; Visit Provider Internal Medicine
DX: E78.00 Pure hypercholesterolemia, unspecified (principal); R03.0 Elevated blood-pressure reading, without diagnosis of hypertension; I42.2 Other hypertrophic cardiomyopathy; S32.010S Wedge compression fracture of first lumbar vertebra, sequela; J45.40 Moderate persistent asthma, uncomplicated; Z91.09 Other allergy status, other than to drugs and biological substances; R79.89 Other specified abnormal findings of blood chemistry; K21.9 Gastro-esophageal reflux disease without esophagitis; E55.9 Vitamin D deficiency, unspecified; L81.9 Disorder of pigmentation, unspecified; E66.3 Overweight

== ENCOUNTER 2024-11-05 10:33 | Outpatient (AMB) | payer OTHER, MEDICARE, SELFPAY ==
--- OUTSIDE RECORDS SUMMARY | 2024-11-05 12:56 | XMS_ITS | Patient Health Record ---
Author Organization [facility] Address [address] [place] [address] Care Team Providers Care Information Consultant Name Role Phone Sajan GONSALEZ, [place] Primary Care Provider Juan Manuel Charles Unavailable [phone] Allergies Allergen (clinical drug ingredient) Drug/Non Drug [...] Problem Status W/U Status Risk Notes Problem 444229544 Encounter for screening for malignant neoplasm of colon (Z12.11) Active confirmed Problem 079237361 Hx of adenomatou s colonic polyps (Z86.010) Active confirmed Problem 600409562764888 Pre-procedural examination (Z01.818) Active confirmed Problem Diverticulosis of sigmoid colon (115311279) Diverticulosis of sigmoid colon (K57.30) Active confirmed Problem Gastroesophageal reflux disease (928785654) GERD without esophagitis (K21.9) Active confirmed Plan Of Treatment Pending Test Test Name Order Date Pathology 12/30/2021 Future Test Test Name Order Date COLONOSCOPY 03/10/2012 COLONOSCOPY 07/20/2017 COLONOSCOPY 09/10/2021 Insurance Providers Payer Name Payer Address Payer Phone Subscriber Number Group Number Insured Name Patient Relationship to Insured Coverage Start Date Coverage End Date [facility] [address] [facility] [place] [phone] [id number] ALYSSA TURNER Self - patient is the [...]
== END 2024-11-05 10:33 | disposition home or self-care (01) ==
LOC: HO.HMGAL 10:33
PROVIDERS: PCP Internal Medicine; Visit Provider Registered Nurse Emergency
DX: J30.89 Other allergic rhinitis (principal)
CPT/HCPCS: 95117; 95165

== ENCOUNTER 2024-11-19 10:11 | Outpatient (AMB) | payer OTHER, MEDICARE, SELFPAY ==
--- OUTSIDE RECORDS SUMMARY | 2024-11-19 11:49 | XMS_ITS | Patient Health Record ---
Author Organization [facility] Address [address] [place] [address] Care Team Providers Care Contact Center Consultant Name Role Phone Sajan GONSALEZ, [place] Primary Care Provider Juan Manuel Charles Unavailable [phone] Allergies Allergen (clinical drug ingredient) Drug/Non Drug [...] Problem Status W/U Status Risk Notes Problem 879908017 Encounter for screening for malignant neoplasm of colon (Z12.11) Active confirmed Problem 359513325 Hx of adenomatou s colonic polyps (Z86.010) Active confirmed Problem 293580940522034 Pre-procedural examination (Z01.818) Active confirmed Problem Diverticulosis of sigmoid colon (444605118) Diverticulosis of sigmoid colon (K57.30) Active confirmed Problem Gastroesophageal reflux disease (610221378) GERD without esophagitis (K21.9) Active confirmed Plan Of Treatment Pending Test Test Name Order Date Pathology 12/30/2021 Future Test Test Name Order Date COLONOSCOPY 03/10/2012 COLONOSCOPY 07/20/2017 COLONOSCOPY 09/10/2021 Insurance Providers Payer Name Payer Address Payer Phone Subscriber Number Group Number Insured Name Patient Relationship to Insured Coverage Start Date Coverage End Date [facility] [address] [facility] [place] [phone] [id number] ALYSSA TURNER Self - patient is the insured Medical (General) History Medical History History ICD Code GERD-EGD in 02/2007-small HH, no esophagi tis Screening colonoscopy in 2007-1 small tu bular adenoma removed in 02/2007 Asthma Hyperlipidemia Denies [place],DM,CVA,renal disease Negative colonoscopy in 04/2012 except fo r diverticulosis C.diff from antibiotics in approx 2014 Compression fracture in L1 -fell off lad manjit 03/2021 Colonoscopy 07/2017 with a tubular adenom a removed-difficult procedure Surgical History Surgery Date(Month/Year) Emergency Tracheostomy 8-due to an allergic reaction--Dr. Wallace---removed in May,
== END 2024-11-19 10:49 | disposition home or self-care (01) ==
LOC: HO.HMGAL 10:11
PROVIDERS: PCP Internal Medicine; Visit Provider Registered Nurse Emergency
DX: J30.89 Other allergic rhinitis (principal)
CPT/HCPCS: 95117; 95165

== ENCOUNTER 2024-11-28 10:41 | Outpatient (AMB) | payer OTHER, MEDICARE, SELFPAY ==
--- OUTSIDE RECORDS SUMMARY | 2024-11-28 12:47 | XMS_ITS | Patient Health Record ---
Author Organization [facility] Address [address] [place] [address] Care Team Providers Care Java Web Application Developer Name Role Phone Sajan GONSALEZ, [place] Primary Care Provider Juan Manuel Charles Unavailable [phone] Allergies Allergen (clinical drug ingredient) Drug/Non Drug [...] Problem Status W/U Status Risk Notes Problem Screening for malignant neoplasm of colon (059751944) Encounter for screening for malignant neoplasm of colon (Z12.11) Active confirmed Problem History of adenomatous polyp of colon (177111330) Hx of adenomatous colonic polyps (Z86.010) Active confirmed Problem Pre-procedure evaluation check (016092328) Pre-procedural examination (Z01.818) Active confirmed Problem Diverticulosis of sigmoid colon (067863045) Diverticulosis of sigmoid colon (K57.30) Active confirmed Problem Gastroesophageal reflux disease (471086282) GERD without esophagitis (K21.9) Active confirmed Plan Of Treatment Pending Test Test Name Order Date Pathology 12/30/2021 Future Test Test Name Order Date COLONOSCOPY 03/10/2012 COLONOSCOPY 07/20/2017 COLONOSCOPY 09/10/2021 Insurance Providers Payer Name Payer Address Payer Phone Subscriber Number Group Number Insured Name Patient Relationship to Insured Coverage Start Date Coverage End Date [facility] [address] [place] [phone] [id number] ALYSSA TURNER Self - patient is the insured Medical (General) History Medical History History ICD Code GERD-EGD in 02/2007-small HH, no esophagi tis Screening colonoscopy in 2007-1 small tu bular adenoma removed in 02/2007 Asthma Hyperlipidemia Denies [place],DM,CVA,renal disease Negative colonoscopy in 04/2012 except fo r diverticulosis C.diff from antibiotics in approx 2014 Compression fracture in L1 -fell off lad manjit 03/2021 Colonoscopy 07/2017 with a tubular adenom a removed-difficult procedure Surgical History Surgery Date(Month/Year) Emergency Tracheostomy 8-due to an allergic reaction--Dr. Wallace---removed in May,
== END 2024-11-28 10:42 | disposition home or self-care (01) ==
LOC: HO.HMGAL 10:41
PROVIDERS: PCP Internal Medicine; Visit Provider Registered Nurse Emergency
DX: J30.89 Other allergic rhinitis (principal)
CPT/HCPCS: 95117; 95165

== ENCOUNTER 2024-12-03 09:49 | Outpatient (AMB) | payer OTHER, MEDICARE, SELFPAY | END 2024-12-03 09:50 | disposition home or self-care (01) | LOC: HO.HMGAL 09:49 | PROVIDERS: PCP Internal Medicine; Visit Provider Registered Nurse Emergency | DX: J30.89 Other allergic rhinitis (principal) | CPT/HCPCS: 95117; 95165 ==

== ENCOUNTER 2024-12-10 11:36 | Outpatient (AMB) | payer OTHER, MEDICARE, SELFPAY ==
--- OUTSIDE RECORDS SUMMARY | 2024-12-10 14:59 | XMS_ITS | Patient Health Record ---
Author Organization [facility] Address [address] [place] [address] Care Team Providers Care Head Of Commission Department Name Role Phone Sajan GONSALEZ, [place] Primary Care Provider Juan Manuel Charles Unavailable [phone] Allergies Allergen (clinical drug ingredient) Drug/Non Drug [...] Problem Screening for malignant neoplasm of colon (567705992) Encounter for screening for malignant neoplasm of colon (Z12.11) Active confirmed Problem History of adenomatous polyp of colon (238366325) Hx of adenomatous colonic polyps (Z86.010) Active confirmed Problem Pre-procedure evaluation check (265264352) Pre-procedural examination (Z01.818) Active confirmed Problem Diverticulosis of sigmoid colon (863443707) Diverticulosis of sigmoid colon (K57.30) Active confirmed Problem Gastroesophageal reflux disease (320627095) GERD without esophagitis (K21.9) Active confirmed Plan Of Treatment Pending Test Test Name Order Date Pathology 12/30/2021 Future Test Test Name Order Date COLONOSCOPY 03/10/2012 COLONOSCOPY 07/20/2017 COLONOSCOPY 09/10/2021 Insurance Providers Payer Name Payer Address Payer Phone Subscriber Number Group Number Insured Name Patient Relationship to Insured Coverage Start Date Coverage End Date [facility] [address] [place] [phone] [id number] ALYSSA TURNER Self - patient is the insured Medical (General) History Medical History History ICD Code GERD-EGD in 02/2007-small HH, no esophagi tis Screening colonoscopy in 2007-1 small tu bular adenoma removed in 02/2007 Asthma Hyperlipidemia Denies VT,DM,CVA,renal disease Negative colonoscopy in 04/2012 except fo r diverticulosis C.diff from antibiotics in approx 2014 Compression fracture in L1 -fell off lad manjit 03/2021 Colonoscopy 07/2017 with a tubular adenom a removed-difficult procedure Surgical History Surgery Date(Month/Year) Emergency Tracheostomy 8-due to an allergic reaction--Dr. Wallace---removed in May,
== END 2024-12-10 11:37 | disposition home or self-care (01) ==
LOC: HO.HMGAL 11:36
PROVIDERS: PCP Internal Medicine; Visit Provider Registered Nurse Emergency
DX: J30.89 Other allergic rhinitis (principal)
CPT/HCPCS: 95117; 95165

== ENCOUNTER 2024-12-17 11:56 | Outpatient (AMB) | payer OTHER, MEDICARE, SELFPAY ==
--- OUTSIDE RECORDS SUMMARY | 2024-12-17 15:09 | XMS_ITS | Patient Health Record ---
Author Organization [facility] Address [address] [place] [address] Care Team Providers Care Senior Integration Architect Name Role Phone Sajan GONSALEZ, [place] Primary Care Provider Juan Manuel Charles Unavailable [phone] Allergies Allergen (clinical drug ingredient) Drug/Non Drug [...] Problem Screening for malignant neoplasm of colon (483963165) Encounter for screening for malignant neoplasm of colon (Z12.11) Active confirmed Problem History of adenomatous polyp of colon (748969509) Hx of adenomatous colonic polyps (Z86.010) Active confirmed Problem Pre-procedure evaluation check (049736751) Pre-procedural examination (Z01.818) Active confirmed Problem Diverticulosis of sigmoid colon (820496176) Diverticulosis of sigmoid colon (K57.30) Active confirmed Problem Gastroesophageal reflux disease (847018247) GERD without esophagitis (K21.9) Active confirmed Plan Of Treatment Pending Test Test Name Order Date Pathology 12/30/2021 Future Test Test Name Order Date COLONOSCOPY 03/10/2012 COLONOSCOPY 07/20/2017 COLONOSCOPY 09/10/2021 Insurance Providers Payer Name Payer Address Payer Phone Subscriber Number Group Number Insured Name Patient Relationship to Insured Coverage Start Date Coverage End Date [facility] [address] [place] [phone] [id number] ALYSSA TURNER Self - patient is the [...]
== END 2024-12-17 11:57 | disposition home or self-care (01) ==
LOC: HO.HMGAL 11:56
PROVIDERS: PCP Internal Medicine; Visit Provider Registered Nurse Emergency
DX: J30.89 Other allergic rhinitis (principal)
CPT/HCPCS: 95117; 95165

== ENCOUNTER 2024-12-24 11:54 | Outpatient (AMB) | payer OTHER, MEDICARE, SELFPAY | END 2024-12-24 11:54 | disposition home or self-care (01) | LOC: HO.HMGAL 11:54 | PROVIDERS: PCP Internal Medicine; Visit Provider Registered Nurse Emergency | DX: J30.89 Other allergic rhinitis (principal) | CPT/HCPCS: 95117; 95165 ==

== ENCOUNTER 2024-12-31 13:02 | Outpatient (AMB) | payer OTHER, MEDICARE, SELFPAY | END 2024-12-31 13:05 | disposition home or self-care (01) | LOC: HO.HMGAL 13:02 | PROVIDERS: PCP Internal Medicine; Visit Provider Registered Nurse Emergency | DX: J30.89 Other allergic rhinitis (principal) | CPT/HCPCS: 95117; 95165 ==

== ENCOUNTER 2025-01-07 12:55 | Outpatient (AMB) | payer OTHER, MEDICARE, SELFPAY | END 2025-01-07 12:55 | disposition home or self-care (01) | LOC: HO.HMGAL 12:55 | PROVIDERS: PCP Internal Medicine; Visit Provider Registered Nurse Emergency | DX: J30.89 Other allergic rhinitis (principal) | CPT/HCPCS: 95117; 95165 ==

== ENCOUNTER 2025-01-14 10:16 | Outpatient (AMB) | payer OTHER, MEDICARE, SELFPAY | END 2025-01-14 10:17 | disposition home or self-care (01) | LOC: HO.HMGAL 10:16 | PROVIDERS: PCP Internal Medicine; Visit Provider Registered Nurse Emergency | DX: J30.89 Other allergic rhinitis (principal) | CPT/HCPCS: 95117; 95165 ==

== ENCOUNTER 2025-01-21 10:43 | Outpatient (AMB) | payer OTHER, MEDICARE, SELFPAY | END 2025-01-21 10:43 | disposition home or self-care (01) | LOC: HO.HMGAL 10:43 | PROVIDERS: PCP Internal Medicine; Visit Provider Registered Nurse Emergency | DX: J30.89 Other allergic rhinitis (principal) | CPT/HCPCS: 95117; 95165 ==

== ENCOUNTER 2025-01-28 10:37 | Outpatient (AMB) | payer OTHER, MEDICARE, SELFPAY | END 2025-01-28 10:38 | disposition home or self-care (01) | LOC: HO.HMGAL 10:37 | PROVIDERS: PCP Internal Medicine; Visit Provider Registered Nurse Emergency | DX: J30.89 Other allergic rhinitis (principal) | CPT/HCPCS: 95117; 95165 ==

== ENCOUNTER 2025-02-04 11:09 | Outpatient (AMB) | payer OTHER, MEDICARE, SELFPAY ==
--- OUTSIDE RECORDS SUMMARY | 2025-02-04 14:10 | XMS_ITS | Patient Health Record ---
Author Organization [facility] Address [address] [place] [address] Care Team Providers Care Set Illustrator Name Role Phone Sajan GONSALEZ, [place] Primary Care Provider Juan Manuel Charles Unavailable [phone] Allergies Allergen (clinical drug ingredient) Drug/Non Drug Allergy documented on EMR Reaction Allergy Type Onset Date Status seasonal (uncoded) Unknown Allergy A ctive Reason For Referral No Information Medications Medication SIG (Take, Route, Frequency, Duration) Notes Start Date End Date Status Ibuprofen 800 MG Tablet 1 tablet with fo od or milk as needed Orally prn/ for back Active Flonase 50 MCG/ACT Suspension 1 spray in each nostril Nasally Once a day Active Skelaxin 800 MG Tablet 1 tablet Orally p rn/back pain Active Albuterol prn Active Simvastatin 20 MG Tablet 1 tablet in the evening Orally Once a day Active Famotidine 40 MG Tablet 1 tablet at bedt valentine Orally Once a day Active Immunizations Vaccine Route Administration Date Status Comme nts Influenza Unknown 09/10/2021 Refused Social History Social History Additional Details Category Social Info Options Details Miscellaneous: Marital status: 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 [employer] Section Notes: Nonsmoker; 2 drinks QPM Nonsmoker; 2 drinks QPM Nonsmoker; 2 drinks QPM Problems Problem Type SNOMED Code ICD Code Onset Dates Problem Status W/U Status Risk Notes Problem Screening for malignant neoplasm of colon (356231360) Encounter for screening for malignant neoplasm of colon (Z12.11) Active confirmed Problem History of adenomatous polyp of colon (852652274) Hx of adenomatous colonic polyps (Z86.010) Active confirmed Problem Pre-procedure evaluation check (711583482) Pre-procedural examination (Z01.818) Active confirmed Problem Diverticulosis of sigmoid colon (993763516) Diverticulosis of sigmoid colon (K57.30) Active confirmed Problem Gastroesophageal reflux disease (073288285) GERD without esophagitis (K21.9) Active confirmed Plan Of Treatment Pending Test Test Name Order Date Pathology 12/30/2021 Future Test Test Name Order Date COLONOSCOPY 03/10/2012 COLONOSCOPY 07/20/2017 COLONOSCOPY 09/10/2021 Insurance Providers Payer Name Payer Address Payer Phone Subscriber Number Group Number Insured Name Patient Relationship to Insured Coverage Start Date Coverage End Date [facility] [address] [place] [phone] [id number] ALYSSA TURNER Self - patient is the [...]
== END 2025-02-04 11:09 | disposition home or self-care (01) ==
LOC: HO.HMGAL 11:09
PROVIDERS: PCP Internal Medicine; Visit Provider Registered Nurse Emergency
DX: J30.89 Other allergic rhinitis (principal)
CPT/HCPCS: 95117; 95165